=== PATIENT | female | born 1995 | race Caucasian/White ===

== ENCOUNTER 2017-07-10 09:23 | Emergency (ER) | payer MEDICAID ==
[2017-07-10 11:03] LABS: BASOPHILS % (AUTO) 0.5 %; EOSINOPHILS # (AUTO) 0.2 10^3/uL (0.0-0.7); EOSINOPHILS % (AUTO) 2.2 %; HGB - HEMOGLOBIN 12.7 g/dL (12.0-16.0); LYMPHOCYTES # (AUTO) 1.6 10^3/uL (1.5-3.5); LYMPHOCYTES % (AUTO) 22.7 %; MEAN CORPUSCULAR HEMOGLOBIN 28.5 pg (27.0-31.0); MEAN CORPUSCULAR HGB CONC 34.2 g/dL (32.0-36.0); MEAN CORPUSCULAR VOLUME 83.1 fL (81.0-99.0); MEAN PLATELET VOLUME 6.9 fL (7.9-10.8); MONOCYTES # (AUTO) 0.5 10^3/uL (0.0-1.0); MONOCYTES % (AUTO) 6.9 %; NEUTROPHILS # (AUTO) 4.7 10^3/uL (1.5-6.6); NEUTROPHILS % (AUTO) 67.7 %; RED BLOOD COUNT 4.45 10^6/uL (4.20-5.40); RED CELL DISTRIBUTION WIDTH 13.2 % (12.0-15.0); UNCORRECTED WHITE BLOOD COUNT 6.9 x10^3/uL; WHITE BLOOD COUNT 6.9 x10^3/uL (4.8-10.8)
[2017-07-10 11:22] LABS: ALBUMIN/GLOBULIN RATIO 1.1 (1.0-2.2); BILIRUBIN,TOTAL 0.2 mg/dL (0.2-1.0); CREATININE 0.8 mg/dL (0.4-1.0); POTASSIUM 3.8 mmol/L (3.5-5.0); TOTAL PROTEIN 7.2 g/dL (6.7-8.2)
--- NOTE | 2017-07-10 11:28 | ED Physician Documentation ---
History of Present Illness - Stated complaint Stated Complaint: RAPID HEART RATE - Chief complaint Chief Complaint: Cardiac - History obtained from History obtained from: Patient, Family - History of Present Illness Timing: How many weeks ago (8) - Additonal information Additional information: 22-year-old female has noticed over the past 2 months episodically having a rapid heart rate and feeling dizzy and lightheaded. She has not clocked her heart rate with this she did check her blood pressure once and it was normal. She has been having issues at work with lightheadedness and dizziness and has come to the emergency department now for evaluation. She has not been recently ill. She does have some anxiety. Review of Systems Constitutional: denies: Fever Eyes: denies: Decreased vision, Photophobia Ears: denies: Ear pain Nose: denies: Rhinorrhea / runny nose, Congestion Throat: denies: Sore throat Cardiac: reports: Palpitations. denies: Chest pain / pressure Respiratory: denies: Dyspnea, Cough GI: denies: Abdominal Pain, Nausea, Vomiting : denies: Dysuria, Frequency Skin: denies: Rash, Lesions Musculoskeletal: denies: Neck pain, Back pain, Extremity pain Neurologic: denies: Generalized weakness, Focal weakness, Numbness PD PAST MEDICAL HISTORY - Past Medical History Past Medical History: Yes GI: Ulcers - Past Surgical History Past Surgical History: Yes HEENT: Tonsil/Adenoidectomy - Present Medications Home Medications: Ambulatory Orders Medication Instructions Recorded Confirmed No Known Home Medications [No 07/10/17 07/10/17 Known Home Medications] - Allergies Allergies/Adverse Reactions: Allergies Allergy/AdvReac Type Severity Reaction Status Date / Time ondansetron AdvReac Anxiety Verified 07/10/17 09:58 [From Zofran (as hydrochloride)] - Social History Does the pt smoke?: Yes Smoking Status: Current every day smoker Does the pt drink ETOH?: No Does the pt have substance abuse?: No PD ED PE NORMAL - Vitals Vital signs reviewed: Yes (normal ) - General General: Alert and oriented X 3, No acute distress, Well developed/nourished - HEENT HEENT: Atraumatic, PERRL, EOMI, Ears normal, Moist mucous membranes, Pharynx benign, Dentition benign - Neck Neck: Supple, no meningeal sign, No bony TTP - Cardiac Cardiac: RRR, No murmur - Respiratory Respiratory: No respiratory distress, Clear bilaterally - Abdomen Abdomen: Soft, Non tender - Back Back: No CVA TTP, No spinal TTP - Derm Derm: Normal color, Warm and dry, No rash - Extremities Extremities: No deformity, No edema - Neuro Neuro: Alert and oriented X 3, No motor deficit, No sensory deficit, Normal speech Eye Opening: Spontaneous Motor: Obeys Commands Verbal: Oriented GCS Score: 15 - Psych Psych: Normal mood, Normal affect Results - Vitals Vitals: Vital Signs - 24 hr 07/10/17 07/10/17 07/10/17 09:40 10:46 11:35 Temperature 36.7 C Heart Rate 88 75 69 Respiratory 18 16 18 Rate Blood Pressure 119/74 104/72 118/69 O2 Saturation 100 100 100 Oxygen O2 Source Room air - EKG (time done) 0936 Rate: Rate (enter#) (92) Rhythm: NSR Ischemia: Normal ST segments Compare to prior EKG: Old EKG unavailable Computer interpretation: Agree with computer - Labs Labs: Laboratory Tests 07/10/17 07/10/17 07/10/17 10:45 10:45 10:45 WBC 6.9 RBC 4.45 Hgb 12.7 Hct 37.0 MCV 83.1 MCH 28.5 MCHC 34.2 RDW 13.2 Plt Count 222 MPV 6.9 L Neut # 4.7 Lymph # 1.6 Grimes # 0.5 Eos # 0.2 Baso # 0.0 Absolute Nucleated RBC 0.00 Nucleated RBC % 0.0 Sodium 139 Potassium 3.8 Chloride 105 Carbon Dioxide 24 Anion Gap 10.0 BUN 14 Creatinine 0.8 Estimated GFR (MDRD) 91 Glucose 96 Calcium 9.0 Total Bilirubin 0.2 AST 20 ALT 17 Alkaline Phosphatase 69 Troponin I < 0.04 Total Protein 7.2 Albumin 3.8 Globulin 3.4 Albumin/Globulin Ratio 1.1 Lipase 36 Urine Color Urine Clarity Urine pH Ur Specific [place] Urine Protein Urine Glucose (UA) Urine Ketones Urine Occult Blood Urine Nitrite Urine Bilirubin Urine Urobilinogen Ur Leukocyte Esterase Urine RBC Urine WBC Ur Squamous Epith Cells Amorphous Sediment Urine Bacteria Ur Microscopic Review Urine Culture Comments Urine HCG, Qual 07/10/17 11:30 WBC RBC Hgb Hct MCV MCH MCHC RDW Plt Count MPV Neut # Lymph # [place] # Eos # Baso # Absolute Nucleated RBC Nucleated RBC % Sodium Potassium Chloride Carbon Dioxide Anion Gap BUN Creatinine Estimated GFR (MDRD) Glucose Calcium Total Bilirubin AST ALT Alkaline Phosphatase Troponin I Total Protein Albumin Globulin Albumin/Globulin Ratio Lipase Urine Color YELLOW Urine Clarity CLOUDY Urine pH 7.5 Ur Specific [place] 1.015 Urine Protein NEGATIVE Urine Glucose (UA) NEGATIVE Urine Ketones NEGATIVE Urine Occult Blood NEGATIVE Urine Nitrite NEGATIVE Urine Bilirubin NEGATIVE Urine Urobilinogen 0.2 (NORMAL) Ur Leukocyte Esterase NEGATIVE Urine RBC 0-5 Urine WBC 0-3 Ur Squamous Epith Cells NONE SEEN Amorphous Sediment Moderate Urine Bacteria Rare Ur Microscopic Review INDICATED Urine Culture Comments NOT INDICATED Urine HCG, Qual NEGATIVE Procedures - IVC sono (time) 1120 Bedside IVC sono: IVC measures (cm) (1.7), Euvolemia PD MEDICAL DECISION MAKING - ED course Complexity details: reviewed results, re-evaluated patient, considered differential, d/w patient, d/w family ED course: 22-year-old female with a history of symptoms of lightheadedness dizziness and palpitations has a normal examination today she is not dehydrated on interrogation of the inferior vena cava and she does not have arrhythmia or signs of infection. She is not . She has frequent symptoms and I suspect she may have some issue with anxiety. Departure - Departure Disposition: 01 Home, Self Care Clinical Impression: Anxiety Condition: Stable Instructions: ED Stress React, ED Panic Attack Follow-Up: [facility] [Provider Group]
[2017-07-10 11:45] LABS: BILIRUBIN,URINE NEGATIVE (NEGATIVE); PH,URINE 7.5 PH (5.0-7.5)
[2017-07-10 11:49] LABS: HCG UR QUAL NEGATIVE; UA w/ MICROSCOPIC CHARGE YES
[2017-07-10 12:00] LABS: WBC,URINE 0-3 /HPF (0-5)
[2017-07-10 12:01] LABS: UR CULTURE IF IND NOT INDICATED
[2017-07-10 12:11] VITALS: BP 108/62
== END 2017-07-10 12:15 | disposition home or self-care (01) ==
LOC: ED 09:23
DX: F41.9 Anxiety disorder, unspecified (principal); F17.200 Nicotine dependence, unspecified, uncomplicated
CPT/HCPCS: 36415; 80053; 81001; 81003; 81025; 83690; 84484; 85025; 87086; 93005; 99284

== ENCOUNTER 2017-08-23 10:18 | Outpatient (CLI) | payer MEDICAID ==
[2017-08-23 10:58] LABS: BASOPHILS % (AUTO) 0.7 %; EOSINOPHILS # (AUTO) 0.1 10^3/uL (0.0-0.7); EOSINOPHILS % (AUTO) 1.5 %; HGB - HEMOGLOBIN 13.2 g/dL (12.0-16.0); LYMPHOCYTES # (AUTO) 1.5 10^3/uL (1.5-3.5); LYMPHOCYTES % (AUTO) 22.8 %; MEAN CORPUSCULAR HEMOGLOBIN 29.2 pg (27.0-31.0); MEAN CORPUSCULAR HGB CONC 34.6 g/dL (32.0-36.0); MEAN CORPUSCULAR VOLUME 84.4 fL (81.0-99.0); MEAN PLATELET VOLUME 6.8 fL (7.9-10.8); MONOCYTES # (AUTO) 0.5 10^3/uL (0.0-1.0); MONOCYTES % (AUTO) 6.9 %; NEUTROPHILS # (AUTO) 4.5 10^3/uL (1.5-6.6); NEUTROPHILS % (AUTO) 68.1 %; PLT - PLATELET COUNT 226 10^3/uL (130-450); RED BLOOD COUNT 4.53 10^6/uL (4.20-5.40); WHITE BLOOD COUNT 6.6 x10^3/uL (4.8-10.8)
[2017-08-23 11:04] LABS: BILIRUBIN,URINE NEGATIVE (NEGATIVE); GLUCOSE, URINE (UA) NEGATIVE (NEGATIVE); KETONES,URINE (UA) NEGATIVE (NEGATIVE); LEUKOCYTE ESTERASE, URINE NEGATIVE (NEGATIVE); NITRITE,URINE NEGATIVE (NEGATIVE); OCCULT BLOOD,URINE NEGATIVE (NEGATIVE); PROTEIN,URINE NEGATIVE (NEGATIVE); UROBILINOGEN,URINE 0.2 (NORMAL) E.U./dL (NORMAL)
[2017-08-23 11:05] LABS: CLARITY,URINE CLOUDY (CLEAR)
[2017-08-23 11:12] LABS: BACTERIA,URINE Rare /HPF (None Seen); RBC,URINE 0-5 /HPF (0-5); SQUAMOUS EPITHELIAL CELL,UR FEW Squamous (<= Few)
[2017-08-23 11:13] LABS: AMORPHOUS SEDIMENT,UR Moderate /LPF
[2017-08-24 12:31] LABS: HIV AG/AB 4TH GEN NON-REACTIVE (NON-REACTIVE)
[2017-08-24 13:33] LABS: HEPATITIS B SURFACE ANTIGEN NON-REACTIVE (NON-REACTIVE)
== END 2017-08-23 10:19 | disposition home or self-care (01) ==
LOC: LAB 10:18
PROVIDERS: ATTEND Registered Nurse
DX: Z36.9 Encounter for antenatal screening, unspecified (principal)
CPT/HCPCS: 36415; 81001; 81599; 85025; 86592; 86762; 86850; 86900; 86901; 87340; 87389

== ENCOUNTER 2017-09-08 11:31 | Emergency (ER) | payer MEDICAID, OTHER ==
[2017-09-08 11:58] LABS: BILIRUBIN,URINE NEGATIVE (NEGATIVE); GLUCOSE, URINE (UA) NEGATIVE (NEGATIVE); KETONES,URINE (UA) NEGATIVE (NEGATIVE); LEUKOCYTE ESTERASE, URINE NEGATIVE (NEGATIVE); NITRITE,URINE NEGATIVE (NEGATIVE); OCCULT BLOOD,URINE TRACE-INTA (NEGATIVE); PROTEIN,URINE NEGATIVE (NEGATIVE); UROBILINOGEN,URINE 0.2 (NORMAL) E.U./dL (NORMAL)
[2017-09-08 11:59] LABS: CLARITY,URINE CLOUDY (CLEAR)
--- NOTE | 2017-09-08 12:05 | ED Physician Documentation ---
PD HPI FEMALE - Stated complaint Stated Complaint: CRAMPING/BLEEDING 9WKS PREG - Chief complaint Chief Complaint: Abd Pain - History obtained from History obtained from: Patient - History of Present Illness Timing - onset: Today Timing - duration: Minutes Timing - details: Abrupt onset Associated symptoms: Pelvic pain, Vaginal bleeding (she had onset of some pelvic cramping and had some clear vaginal fluid then some trace of bloody fluid. Still with some cramping.). 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 - Past Surgical History Past Surgical History: Yes HEENT: Tonsil/Adenoidectomy - Present Medications Home Medications: Ambulatory Orders Medication Instructions Recorded Confirmed Cetirizine [ZyrTEC] 10 mg PO DAILY #15 tablet 09/08/17 Dexamethasone [Decadron] 4 mg PO DAILY #5 tablet 09/08/17 Docusate Sodium 100 mg PO DAILY #30 capsule 09/08/17 Pyridoxine HCl [Vitamin B-6] 25 mg PO BID #60 tablet 09/08/17 - Allergies Allergies/Adverse Reactions: Allergies Allergy/AdvReac Type Severity Reaction Status Date / Time ondansetron AdvReac Anxiety Verified 07/10/17 09:58 [From Zofran (as hydrochloride)] - Social History Does the pt smoke?: Yes Smoking Status: Current every day smoker Does the pt drink ETOH?: No Does the pt have substance abuse?: No PD ED PE NORMAL - Vitals Vital signs reviewed: Yes - General General: Alert and oriented X 3, No acute distress, Well developed/nourished - Neck Neck: Supple, no meningeal sign, No adenopathy - Cardiac Cardiac: RRR, No murmur - Respiratory Respiratory: Clear bilaterally - Abdomen Abdomen: Normal bowel sounds, Soft, Non tender, Non distended - Female Female : Deferred, Other (bedside U/S shows IUP with size c/w dates, good movement, FHR 140, and normal appearing amniotic fluid. No pelvic free fluid. ) - Rectal Rectal: Deferred - Back Back: No CVA TTP - Derm Derm: Normal color, Warm and dry - Neuro Neuro: Alert and oriented X 3, No motor deficit, Normal speech Results - Vitals Vitals: Vital Signs - 24 hr 09/08/17 09/08/17 09/08/17 11:34 13:05 13:07 Temperature 36.9 C 36.8 C 36.4 C L Heart Rate 77 74 84 Respiratory 17 17 18 Rate Blood Pressure 126/76 130/74 106/64 O2 Saturation 100 100 100 Oxygen O2 Source Room air - Labs Labs: Laboratory Tests 09/08/17 11:40 Urine Color LIGHT YELLOW Urine Clarity CLOUDY Urine pH 8.0 H Ur Specific [place] 1.015 Urine Protein NEGATIVE Urine Glucose (UA) NEGATIVE Urine Ketones NEGATIVE Urine Occult Blood TRACE-INTA Urine Nitrite NEGATIVE Urine Bilirubin NEGATIVE Urine Urobilinogen 0.2 (NORMAL) Ur Leukocyte Esterase NEGATIVE Urine RBC 0-5 Urine WBC 0-3 Ur Squamous Epith Cells RARE Squamous Amorphous Sediment Marked Urine Bacteria Rare Ur Microscopic Review INDICATED Urine Culture Comments NOT INDICATED PD MEDICAL DECISION MAKING - ED course Complexity details: considered differential, d/w patient Departure - Departure Disposition: 01 Home, Self Care Clinical Impression: Vaginal bleeding affecting early , Pelvic cramping, Itching Qualifiers: Weeks of gestation: 9 weeks Qualified Code(s): Z3A.09 - 9 weeks gestation of Condition: Stable Record reviewed to determine appropriate education?: Yes Instructions: Bleeding Early Preg, ED Allergic Reaction General Other Prescriptions: Cetirizine [ZyrTEC] 10 mg PO DAILY #15 tablet Dexamethasone [Decadron] 4 mg PO DAILY #5 tablet Docusate Sodium 100 mg PO DAILY #30 capsule Pyridoxine HCl [Vitamin B-6] 25 mg PO BID #60 tablet Comments: Your appears normal at this time by ultrasound. Drink lots of fluids. He can use Tylenol every 6 hours if needed for cramping or pain. Recheck if worsening bleeding, pain, fevers, other concerns. Follow-up with your HOME OFFICE REPRESENTATIVE if symptoms persist another day or 2. For the itching that you have had, he can use Benadryl every 6 hours if needed short-term for itchiness. This can also improve nausea. Otherwise use a long-acting antihistamine such as Zyrtec daily for the next week or 2. Presuming an allergy response, also use Decadron steroid daily for 5 days. Follow-up if the itchiness persists. If it does might need to consider allergy to medication, such as your vitamin. For constipation, try docusate 100 mg daily. Discharge Date/Time: 09/08/17 13:13
[2017-09-08 12:12] LABS: RBC,URINE 0-5 /HPF (0-5); SQUAMOUS EPITHELIAL CELL,UR RARE Squamous (<= Few)
[2017-09-08 12:13] LABS: AMORPHOUS SEDIMENT,UR Marked /LPF; BACTERIA,URINE Rare /HPF (None Seen)
[2017-09-08] MEDS ORDERED: DEXAMETHASONE 10 MG/ML VIAL PO STA (12:38)
[2017-09-08] MEDS ORDERED: CETIRIZINE 10 MG TABLET PO STA (12:38)
[2017-09-08] MEDS ORDERED: ACETAMINOPHEN 325 MG TABLET PO STA (12:38)
[2017-09-08] MEDS ORDERED: diphenhydrAMINE 25 MG CAPSULE PO STA (12:39)
[2017-09-08 13:08] VITALS: BP 106/64
== END 2017-09-08 13:13 | disposition home or self-care (01) ==
LOC: ED 11:31
DX: O20.9 Hemorrhage in early pregnancy, unspecified (principal); Z3A.09 9 weeks gestation of pregnancy; R10.2 Pelvic and perineal pain; L29.9 Pruritus, unspecified; O99.331 Smoking (tobacco) complicating pregnancy, first trimester
CPT/HCPCS: 81001; 99283; A9270; 81003; 87086

== ENCOUNTER 2017-10-11 09:57 | Emergency (ER) | payer OTHER ==
[2017-10-11 10:02] VITALS: BP 112/74
[2017-10-11] MEDS ORDERED: ACETAMINOPHEN 325 MG TABLET PO STA (10:16)
--- NOTE | 2017-10-11 10:19 | ED Physician Documentation ---
PD HPI NECK PAIN - Stated complaint Stated Complaint: NECK PX/14WKS PREG - Chief complaint Chief Complaint: General - History obtained from History obtained from: Patient - History of Present Illness Timing - onset: How many days ago (2) Timing - details: Still present Location: Lower, Left Quality: Spasm Associated symptoms: No: Fever, Weakness, Numbness Worsened by: Movement Contributing factors: No: Trauma Similar symptoms before: No diagnosis - Additional information Additional information: The patient is a 22-year-old female, currently at 14 weeks gestation, who presents with soreness on the left side of her neck. Her symptoms started 2 days ago and persist today. She denies any traumatic injury. The pain is exacerbated by movement of her head. She is left-hand dominant. She reports having tingling in her left arm for about 5 hours yesterday. She denies any numbness, weakness, or tingling today. She has a history of similar episode at age 16, lasting for about 2 days before resolving spontaneously. Review of Systems Constitutional: denies: Fever Nose: denies: Congestion Throat: denies: Sore throat Cardiac: denies: Chest pain / pressure Respiratory: denies: Dyspnea, Cough GI: denies: Abdominal Pain, Nausea, Vomiting : reports: Now EGA (14 weeks gestation). denies: Dysuria Skin: denies: Rash Musculoskeletal: reports: Neck pain. 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 - Past Surgical History Past Surgical History: Yes HEENT: Tonsil/Adenoidectomy - Present Medications Home Medications: Ambulatory Orders Medication Instructions Recorded Confirmed Pnv No.121/Iron/Folic Acid 1 tab PO DAILY 10/11/17 10/11/17 [ Multivitamin Tablet] - Allergies Allergies/Adverse Reactions: Allergies Allergy/AdvReac Type Severity Reaction Status Date / Time ondansetron AdvReac Anxiety Verified 10/11/17 10:02 [From Zofran (as hydrochloride)] - Social History Does the pt smoke?: No Smoking Status: Never smoker Does the pt drink ETOH?: No Does the pt have substance abuse?: No - Immunizations Immunizations are current?: Yes PD ED PE NORMAL - Vitals Vital signs reviewed: Yes (normal) - General General: Alert and oriented X 3, Well developed/nourished - HEENT HEENT: Atraumatic, EOMI, Pharynx benign - Neck Neck: Supple, no meningeal sign, No bony TTP, No adenopathy, No JVD, Other ( There is tenderness to palpation along the left paracervical musculature, including the trapezius musculature. She is able to turn her head at least 30 in each direction. There is no nuchal rigidity.) - Cardiac Cardiac: RRR, No murmur - Respiratory Respiratory: No respiratory distress, Clear bilaterally - Abdomen Abdomen: Soft, Non tender, Other (Gravid uterus, consistent with dates.) - Back Back: No spinal TTP - Derm Derm: No rash - Extremities Extremities: No edema, No calf tenderness / cord - Neuro Neuro: Alert and oriented X 3, No motor deficit, No sensory deficit, Normal speech Results - Vitals Vitals: Vital Signs - 24 hr 10/11/17 09:59 Temperature 36.5 C Heart Rate 96 Respiratory 16 Rate Blood Pressure 112/74 O2 Saturation 100 Oxygen O2 Source Room air PD MEDICAL DECISION MAKING - ED course Complexity details: considered differential, d/w patient, d/w family ED course: The patient's presentation is most consistent with cervical muscle spasm. Her presentation does not suggest meningitis, or acute spinous injury. Treatment in the emergency department included administration of Tylenol 650 mg orally. I discussed with her and her that x-rays are not clinically indicated, and they agreed. I discussed with them symptomatic treatment, outpatient follow -up, as well as potentially worrisome signs or symptoms that should prompt reevaluation in the emergency department. Departure - Departure Disposition: 01 Home, Self Care Clinical Impression: Cervical myofascial strain Qualifiers: Encounter type: initial encounter Qualified Code(s): S16.1XXA - Strain of muscle, fascia and tendon at neck level, initial encounter Qualifiers: Weeks of gestation: 14 weeks Qualified Code(s): Z3A.14 - 14 weeks gestation of Condition: Stable Instructions: ED Sprain Strain Neck Follow-Up: TROY KINSEY MD [Physician No Access] - Comments: Use Tylenol, up to 650 mg 3 or 4 times daily, if needed for pain. Do neck stretching exercises as demonstrated in the emergency department. Follow up with your primary physician as planned. Return to the emergency department if you develop increasing pain, fever, numbness or weakness, or otherwise worsening symptoms.
== END 2017-10-11 10:36 | disposition home or self-care (01) ==
LOC: ED 09:57
DX: O9A.212 Injury, poisoning and certain other consequences of external causes complicating pregnancy, second trimester (principal); S16.1XXA Strain of muscle, fascia and tendon at neck level, initial encounter; X58.XXXA Exposure to other specified factors, initial encounter; Z3A.14 14 weeks gestation of pregnancy
CPT/HCPCS: 99283; A9270

== ENCOUNTER 2017-10-22 15:48 | Emergency (ER) | payer OTHER ==
[2017-10-22 15:55] VITALS: BP 112/77
--- NOTE | 2017-10-22 16:22 | ED Physician Documentation ---
PD HPI PED ILLNESS - Stated complaint Stated Complaint: COUGH/THROAT PX/TOMLINSON/16 WEEKS - Chief complaint Chief Complaint: Heent - History obtained from History obtained from: Patient, Family - History of Present Illness Timing - onset: Other ( at 16 weeks gestation with 1 week's worth of cough and cold symptoms. It started off mostly with sinus pressure and congestion. It was getting better but returned over the last 24 hours with severe right sinus pain and headache. Also a productive cough but no shortness of breath or fevers.) Review of Systems Constitutional: reports: Fatigue. denies: Fever, Chills Nose: reports: Rhinorrhea / runny nose, Congestion, Sinus pressure / pain Throat: reports: Sore throat Respiratory: reports: Cough. 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 - Past Surgical History Past Surgical History: Yes HEENT: Tonsil/Adenoidectomy - Present Medications Home Medications: Ambulatory Orders Medication Instructions Recorded Confirmed Pnv No.121/Iron/Folic Acid 1 tab PO DAILY 10/11/17 10/22/17 [ Multivitamin Tablet] Amox/Clav 875/125 [Augmentin] 1 each PO Q12H #20 tablet 10/22/17 Mometasone Furoate [Nasonex] 1 spray NS BID #1 spray.pump 10/22/17 - Allergies Allergies/Adverse Reactions: Allergies Allergy/AdvReac Type Severity Reaction Status Date / Time ondansetron AdvReac Anxiety Verified 10/22/17 16:17 [From Zofran (as hydrochloride)] - Social History Does the pt smoke?: No Smoking Status: Never smoker Does the pt drink ETOH?: No Does the pt have substance abuse?: No - Immunizations Immunizations are current?: Yes - POLST Patient has POLST: No PD ED PE NORMAL - Vitals Vital signs reviewed: Yes - General General: Alert and oriented X 3, No acute distress - HEENT HEENT: PERRL, EOMI, Ears normal, Pharynx benign, Other (Tender especially over the right maxillary sinus) - Neck Neck: Supple, no meningeal sign, No bony TTP - Cardiac Cardiac: RRR, No murmur - Respiratory Respiratory: No respiratory distress, Clear bilaterally - Abdomen Abdomen: Non tender - Neuro Neuro: Alert and oriented X 3, Normal speech - Psych Psych: Normal mood, Normal affect Results - Vitals Vitals: Vital Signs - 24 hr 10/22/17 15:53 Temperature 36.5 C Heart Rate 101 H Respiratory 16 Rate Blood Pressure 112/77 O2 Saturation 100 Oxygen O2 Source Room air Departure - Departure Disposition: 01 Home, Self Care Clinical Impression: Qualifiers: Weeks of gestation: 16 weeks Qualified Code(s): Z3A.16 - 16 weeks gestation of Sinusitis Qualifiers: Sinusitis location: maxillary Chronicity: acute Recurrence: non-recurrent Qualified Code(s): J01.00 - Acute maxillary sinusitis, unspecified Condition: Good Record reviewed to determine appropriate education?: Yes Instructions: ED Sinusitis Abx Tx Prescriptions: Amox/Clav 875/125 [Augmentin] 1 each PO Q12H #20 tablet Mometasone Furoate [Nasonex] 1 spray NS BID #1 spray.pump Comments: Call your doctor to arrange a follow-up appointment, make the next available appointment. In the interim, return anytime if worse or if new symptoms develop.
== END 2017-10-22 16:25 | disposition home or self-care (01) ==
LOC: ED 15:48
DX: O99.512 Diseases of the respiratory system complicating pregnancy, second trimester (principal); J01.00 Acute maxillary sinusitis, unspecified; Z3A.16 16 weeks gestation of pregnancy
CPT/HCPCS: 99283

== ENCOUNTER 2017-12-31 10:07 | Outpatient (CLI) | payer OTHER, MEDICAID ==
[2017-12-31 11:52] LABS: HGB - HEMOGLOBIN 12.1 g/dL (12.0-16.0); MEAN CORPUSCULAR HEMOGLOBIN 29.7 pg (27.0-31.0); MEAN CORPUSCULAR HGB CONC 34.2 g/dL (32.0-36.0); MEAN CORPUSCULAR VOLUME 86.8 fL (81.0-99.0); MEAN PLATELET VOLUME 6.4 fL (7.9-10.8); RED BLOOD COUNT 4.08 10^6/uL (4.20-5.40); RED CELL DISTRIBUTION WIDTH 13.5 % (12.0-15.0); WHITE BLOOD COUNT 10.6 x10^3/uL (4.8-10.8)
== END 2017-12-31 10:08 | disposition home or self-care (01) ==
LOC: LAB 10:07
PROVIDERS: ATTEND Registered Nurse
DX: Z34.82 Encounter for supervision of other normal pregnancy, second trimester (principal)
CPT/HCPCS: 36415; 82950; 86850

== ENCOUNTER 2018-02-25 13:22 | Outpatient (CLI) | payer OTHER, MEDICAID | END 2018-02-25 13:23 | disposition home or self-care (01) | LOC: LAB.R 13:22 | PROVIDERS: ATTEND Nurse Practitioner Obstetrics & Gynecology | DX: R82.99 Other abnormal findings in urine (principal); O47.03 False labor before 37 completed weeks of gestation, third trimester | CPT/HCPCS: 82731; 87086 ==

== ENCOUNTER 2018-02-25 16:16 | Outpatient (CLI) | payer OTHER, MEDICAID ==
[2018-02-25 16:41] LABS: BILIRUBIN,URINE NEGATIVE (NEGATIVE); GLUCOSE, URINE (UA) NEGATIVE (NEGATIVE); KETONES,URINE (UA) TRACE mg/dL (NEGATIVE); LEUKOCYTE ESTERASE, URINE NEGATIVE (NEGATIVE); NITRITE,URINE NEGATIVE (NEGATIVE); OCCULT BLOOD,URINE NEGATIVE (NEGATIVE); PH,URINE 6.5 PH (5.0-7.5); PROTEIN,URINE NEGATIVE (NEGATIVE); UROBILINOGEN,URINE 0.2 (NORMAL) E.U./dL (NORMAL)
[2018-02-25 16:44] LABS: CLARITY,URINE CLEAR (CLEAR)
[2018-02-25] MEDS ORDERED: LACTATED RINGERS 1,000 ML IV SCH (17:00)
[2018-02-25] MEDS ORDERED: SODIUM CHLORIDE FLUSH 0.9% 10 ML SYRINGE ONE (17:06)
[2018-02-25 19:03] VITALS: BP 102/69
== END 2018-02-25 19:17 | disposition home or self-care (01) ==
LOC: WFO 16:16 → FBP 16:19 → WFO 19:17
PROVIDERS: ATTEND Registered Nurse
DX: O23.13 Infections of bladder in pregnancy, third trimester (principal); Z3A.33 33 weeks gestation of pregnancy; O47.03 False labor before 37 completed weeks of gestation, third trimester
CPT/HCPCS: 59025; 81003; 99213; J7120; 81001; 82731; 87086

== ENCOUNTER 2018-03-08 17:30 | Outpatient (CLI) | payer OTHER, MEDICAID ==
[2018-03-08 17:42] VITALS: BP 107/70
[2018-03-08 18:30] LABS: RUPTURE OF MEMBRANES PLUS NEGATIVE (NEGATIVE)
== END 2018-03-08 18:40 | disposition home or self-care (01) ==
LOC: WFO 17:30 → FBP 17:34 → WFO 18:40
PROVIDERS: ATTEND Nurse Practitioner Obstetrics & Gynecology
DX: O99.89 Other specified diseases and conditions complicating pregnancy, childbirth and the puerperium (principal); N89.8 Other specified noninflammatory disorders of vagina; Z3A.35 35 weeks gestation of pregnancy
CPT/HCPCS: 84112; 99213

== ENCOUNTER 2018-03-13 16:21 | Outpatient (CLI) | payer OTHER, MEDICAID | END 2018-03-13 16:22 | disposition home or self-care (01) | LOC: LAB.R 16:21 | PROVIDERS: ATTEND Registered Nurse | DX: Z34.83 Encounter for supervision of other normal pregnancy, third trimester (principal) | CPT/HCPCS: 87081 ==

== ENCOUNTER 2018-03-31 07:55 | Outpatient (CLI) | payer OTHER, MEDICAID ==
[2018-03-31 08:21] VITALS: BP 104/66
[2018-03-31 08:38] LABS: RUPTURE OF MEMBRANES PLUS NEGATIVE (NEGATIVE)
== END 2018-03-31 08:55 | disposition home or self-care (01) ==
LOC: WFO 07:55 → FBP 07:56 → WFO 08:55
PROVIDERS: ATTEND Nurse Practitioner Obstetrics & Gynecology
DX: O99.89 Other specified diseases and conditions complicating pregnancy, childbirth and the puerperium (principal); N89.8 Other specified noninflammatory disorders of vagina; Z3A.38 38 weeks gestation of pregnancy
CPT/HCPCS: 59025; 84112; 99213

== ENCOUNTER 2018-04-06 07:59 | Inpatient (IN) | payer OTHER, MEDICAID ==
[2018-04-06] MEDS ORDERED: SODIUM CHLORIDE FLUSH 0.9% 10 ML SYRINGE ONE ×2 (08:07→15:38)
[2018-04-06] MEDS ORDERED: LACTATED RINGERS 1,000 ML IV ONE (08:25)
[2018-04-06] MEDS: SODIUM CHLORIDE FLUSH 0.9% 10 ML SYRINGE IVP PRN ×4 (09:00→20:00)
[2018-04-06] MEDS ORDERED: PENICILLIN G POTASSIUM 5,000,000 UNIT in SODIUM CHLORIDE 0.9% MINIBAG 100 ML IV ONE (09:41)
[2018-04-06] MEDS ORDERED: fentaNYL 100 MCG/2 ML VIAL IVP PRN (09:41)
[2018-04-06] MEDS ORDERED: LACTATED RINGERS 500 ML IV ONE ×2 (09:43→20:55)
[2018-04-06] MEDS ORDERED: METOCLOPRAMIDE 10 MG/2 ML VIAL IVP PRN (09:44)
--- NOTE | 2018-04-06 09:56 | PROVIDER PROGRESS NOTE ---
Subjective - Subjective Subjective: S: Sandra and Francisco present today for 39.1wk logistic induction of labor. Pt reports +FM. Denies VB or Lof. Reports that she has continued to lose her mucus plug. Feels slightly anxious but overall excited to get the process of induction started. and father supportive at the bedside. O: Pt light headed and dizzy shortly after presenting - BP 98/73 and 77/56. HR 136 and 135. Fluid bolus administered and pt turned to left side. Repeat BP 106/ 80 and HR 104 and pt reports significant improvement in symptoms. Upon arrival SVE 3/75/-1, anterior, medium consistency, vertex. No contractions via tocometry. FHR baseline 145, moderate variability, + accels, no decels. Heart RRR w/o M/G/R, lungs CTAB, abdomen gravid, soft, nontender. EFW 3100g. Bilateral LE's trace edema. A: 22yo @ 39.1wks gestation GBS positive Logistic IOL preceded by cervical ripening with Misoprostol 50mcg BC q 4 hours FHR Category I P: Cervical ripening in anticipation for IOL with misoprostol 50mcg BC q 4 hours. Penicillin initiated for GBS prophylaxis -continue per protocol. Continuous monitoring. Repeat SVE in 8 hours or sooner PRN. Likely AROM and initiation of Pitocin for IOL in 8 hours. Nitrous oxide per maternal request PRN discomfort. Epidural per maternal request. Reviewed plan of care with patient and her who are in agreement. Consent form previously signed. Pt and both verbalized understanding and agree to above plan. They deny further questions or concerns at this time.
[2018-04-06 09:59] LABS: BASOPHILS # (AUTO) 0.1 10^3/uL (0.0-0.1); BASOPHILS % (AUTO) 0.6 %; EOSINOPHILS # (AUTO) 0.1 10^3/uL (0.0-0.7); EOSINOPHILS % (AUTO) 0.9 %; HGB - HEMOGLOBIN 11.2 g/dL (12.0-16.0); LYMPHOCYTES # (AUTO) 1.5 10^3/uL (1.5-3.5); LYMPHOCYTES % (AUTO) 15.2 %; MEAN CORPUSCULAR HEMOGLOBIN 28.5 pg (27.0-31.0); MEAN CORPUSCULAR HGB CONC 35.1 g/dL (32.0-36.0); MEAN CORPUSCULAR VOLUME 81.2 fL (81.0-99.0); MEAN PLATELET VOLUME 7.2 fL (7.9-10.8); MONOCYTES # (AUTO) 0.8 10^3/uL (0.0-1.0); MONOCYTES % (AUTO) 8.1 %; NEUTROPHILS # (AUTO) 7.5 10^3/uL (1.5-6.6); NEUTROPHILS % (AUTO) 75.2 %; PLT - PLATELET COUNT 221 10^3/uL (130-450); RED BLOOD COUNT 3.94 10^6/uL (4.20-5.40); RED CELL DISTRIBUTION WIDTH 13.4 % (12.0-15.0)
[2018-04-06] MEDS: miSOPROStol 100 MCG TABLET BC SCH ×3 (10:18→17:03)
[2018-04-06] MEDS ORDERED: METHYLERGONOVINE 0.2 MG/ML AMP IVP ONE (13:59)
[2018-04-06] MEDS: PENICILLIN G POTASSIUM 2,500,000 UNIT in SODIUM CHLORIDE 0.9% 100ML 100 ML IV SCH ×2 (14:58→20:02)
[2018-04-06] MEDS ORDERED: SODIUM CHLORIDE FLUSH 0.9% 10 ML SYRINGE IVP SCH (17:00)
[2018-04-06] MEDS: LACTATED RINGERS 1,000 ML IV SCH ×4 (17:02→21:47)
--- NOTE | 2018-04-06 19:58 | PROVIDER PROGRESS NOTE ---
Labor Progress Note - Uterine Monitoring Uterine Monitoring Mode: positive: External toco Contraction Frequency (min/apart): 5-8 Contraction Intensity: positive: Moderate Uterine Resting Tone: positive: Soft - Monitoring Monitor Mode: positive: External ultrasound Heart Rate Baseline: 150 Heart Rate Variability: positive: Moderate (6-25 bmp) Accelerations: positive: Present, 15x15 Decelerations: positive: None Strip Review: positive: Category I - Vaginal Exam Dilation (in cm): 3 Effacement (%): 90 Station: -1 Cervical Position: Midposition - Labor Progress Note Labor Progress Note/Additional Text: S: Pt comfortable in bed. Feeling some increased menstrual-like cramping with contractions. Coping well. Enjoyed the [employer]. Dad and supportive at the bedside. O: BP WNL, FHR baseline 150s, moderate variability, + accels, no decels. Contractions palpate moderate every 5-8 minutes with soft resting tone SVE 3/90/-1, vertex, medium consistency, midposition AROM small amount of clear fluid A: 22yo @ 39.1wks gestation GBS positive s/p 2 doses of penicillin Logistic IOL - s/p Misoprostol 50mcg q 4 hours BC x 2 doses FHR baseline Category I P: Continuous monitoring Initiation of pitocin per protocol Epidural per maternal request Continue administration of antibiotics for GBS prophylaxis Anticipate spontaneous vaginal delivery
[2018-04-06] MEDS ORDERED: OXYTOCIN/SODIUM CHLORIDE 500 ML IV SCH (20:00)
[2018-04-06] MEDS ORDERED: fent/BUPIV 2 MCG/0.125% 250 ML EP PRN (20:55)
[2018-04-06] MEDS ORDERED: NALBUPHINE 10 MG/ML AMP IVP PRN (20:55)
[2018-04-06] MEDS ORDERED: NALOXONE 0.4 MG/ML VIAL IVP PRN (20:55)
[2018-04-06] MEDS ORDERED: ePHEDrine 50 MG/ML VIAL IVP PRN (20:55)
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
[2018-04-06] MEDS ORDERED: BUPIVACAINE 0.25% PF 10 ML VIAL ONE (21:02)
--- NOTE | 2018-04-07 00:28 | PROVIDER PROGRESS NOTE ---
Labor Progress Note - Uterine Monitoring Uterine Monitoring Mode: positive: External toco Contraction Frequency (min/apart): 4-5 Contraction Intensity: positive: Moderate Uterine Resting Tone: positive: Soft - Monitoring Monitor Mode: positive: External ultrasound Heart Rate Baseline: 140 Heart Rate Variability: positive: Moderate (6-25 bmp) Accelerations: positive: Present, 15x15 Decelerations: positive: None Strip Review: positive: Category I - Labor Progress Note Labor Progress Note/Additional Text: S: Patient sleeping comfortably in bed. and father supportive and sleeping at the bedside. O: BP 111/61, HR 83, RR 16 Contractions palpate moderate every 4-5 minutes lasting 30-60 seconds with soft resting tone. FHR baseline 140, moderate variability, + accels, no decels. SVE deferred A: 22yo @ 39.1 wks gestation by L=6.3wk U/S GBS positive AROM x5 hours Epidural for effective pain management FHR Category I P: Continuous monitoring Titration of pitocin per protocol Reevaluate in 4 hours or sooner PRN. Anticipate spontaneous vaginal delivery.
[2018-04-07] MEDS: PENICILLIN G POTASSIUM 2,500,000 UNIT in SODIUM CHLORIDE 0.9% 100ML 100 ML IV SCH ×3 (01:02→17:47)
[2018-04-07] MEDS: LACTATED RINGERS 1,000 ML IV SCH (01:05)
[2018-04-07] MEDS ORDERED: fentaNYL 100 MCG/2 ML VIAL ONE ×3 (02:40→08:37)
[2018-04-07] MEDS ORDERED: BUPIVACAINE 0.25% PF 10 ML VIAL ONE (02:41)
[2018-04-07] MEDS ORDERED: LIDOCAINE-PF 2% 10 ML AMP SUBQ ONE (02:44)
[2018-04-07] MEDS ORDERED: ROPIVACAINE 0.2% PF 20 ML AMPULE ONE (08:38)
[2018-04-07] MEDS ORDERED: WITCH HAZEL/GLYCERIN 1 EACH MED..PAD TOP PRN (08:57)
[2018-04-07] MEDS ORDERED: HYDROCORTISONE/PRAMOXINE 10 GM PR PRN (08:57)
[2018-04-07] MEDS ORDERED: OXYTOCIN/SODIUM CHLORIDE 250 ML IV ONE ×2 (08:57→10:55)
[2018-04-07] MEDS ORDERED: SODIUM CHLORIDE 0.9% 1,000 ML IV ONE (09:16)
--- NOTE | 2018-04-07 09:18 | DELIVERY NOTE ---
Delivery Note - Labor Labor: positive: Augmented by ARM, Induced by oxytocin - Delivery Method Infant Delivery Method: positive: Spontaneous vaginal delivery - Presentation Presentation: positive: Vertex, ABDULLAHI - left occiput anterior - Nuchal Cord Nuchal Cord: positive: None - Amniotic Fluid Description Amniotic Fluid Description: positive: Light meconium - Episiotomy Type Episiotomy Type: positive: None - Laceration Laceration: positive: 2nd degree - Delivery Outcome Delivery Outcome: positive: Livebirth - : positive: Placed in direct skin contact with mother, Stimulated, Warmed , Sharon used, Warmer used [place] sex: positive: Male - Cord Cord: positive: 3 vessels - Placenta Placenta: positive: Retained, Partial - Estimated Blood Loss Estimated Blood Loss (in cc): 350 - Post Delivery Events Post Delivery Events: positive: Retained placenta, Shoulder dystocia - Delivery Comments (Free Text/Narrative) Delivery Comments (Free Text/Narrative): Labor: This 22yo @ 39.3wks gestation by L=6.3wk U/S presented on 2017 @ 0800 for logistic IOL. Cervix was 2-3/75/+1, vertex. FHR pattern demonstrated a baseline 140 in a Category I pattern. Misoprostol 50mcg BC q 4 hrs x 2 doses. Penicillin x 5 doses administered for GBS prophylaxis. Epidural per maternal request. AROM a moderate amount of light meconium stained fluid. Pitocin administered for IOL and titrated per protocol for a max dose of 5. The patient progresses to c/c/+2 with significant vaginal pressure at 0630. : head present on perineum with significant caput present at 0750. Spontaneous vaginal delivery of head at 0807. No nuchal cord. Shoulder dystocia noted. McRobert's maneuver unsuccessful. Attempt to collapse anterior should unsuccessful. Posterior arm swept followed immediately by spontaneous reduction of anterior shoulder. Time of 0808 for a total time of dystocia 90 seconds. Viable male infant named Robert delivered with 's 8 and 9 at 1 and 5 min respectively at 0808 on 04/07/18. The was stimulated, dried, and placed skin to skin. The umbilical cord was doubly clamped and cut by FOB. Cord blood was obtained. Pitocin administered via IV for hemostasis. Placenta partially expelled in multiple fragments. Membranes grasped with ring forceps and continued attempt to manually remove placenta unsuccessful. Dr. Casas, documentation consultant physician called to the bedside for evaluation of retained placenta. 3VC. EBL 350mL. The perineum and vagina were inspected and found to have a 2nd degree laceration which was relatively hemostatic. This was immediately left unrepaired at the request of Dr. Casas in anticipation for surgical removal of retained placenta via D&C. Patient consented for surgical removal of retained placenta by Dr. Casas. Immediate plan of care to be resumed by Dr. Casas. Will follow up with patient following procedure. Dad left holding baby skin to skin in stable condition.
[2018-04-07] MEDS ORDERED: LACTATED RINGERS 1,000 ML IV ONE (09:30)
[2018-04-07] MEDS ORDERED: LIDOCAINE-MPF 2% 5 ML VIAL IM ONE (09:40)
[2018-04-07] MEDS ORDERED: OXYTOCIN 10 UNIT/ML VIAL IV ONE (09:40)
[2018-04-07] MEDS ORDERED: fentaNYL 100 MCG/2 ML VIAL IVP ONE (09:40)
[2018-04-07] MEDS ORDERED: METHYLERGONOVINE 0.2 MG/ML AMP IVP ONE (09:40)
[2018-04-07] MEDS ORDERED: HYDROCORTISONE 1% CREAM 28 GM TUBE PR PRN (10:55)
[2018-04-07] MEDS ORDERED: diphenhydrAMINE 25 MG CAPSULE PO PRN (10:55)
[2018-04-07] MEDS ORDERED: LACTATED RINGERS 1,000 ML IV SCH (11:00)
--- NOTE | 2018-04-07 11:21 | OPERATIVE REPORT ---
DATE OF SERVICE: 04/07/2018 Physician: Emeka Casas MD PREOPERATIVE DIAGNOSES 1. Retained placenta. 2. Second-degree laceration. POSTOPERATIVE DIAGNOSES 1. Retained placenta. 2. Second-degree laceration. PROCEDURES 1. Manual exploration of the uterus with removal of placental tissue. 2. Curettage. 3. Repair of second-degree laceration. SURGEON: Emeka Casas MD. ANESTHESIA: Via LMA with Fransisco Toure TOE SEWER, epidural with fentanyl augmentation. FINDINGS: Large fragment of placental tissue noted. The endometrial cavity was contracted well, with no further tissue on curettage. She had a repair of a second-degree laceration. COMPLICATIONS: None. ESTIMATED BLOOD LOSS: 1000 mL. Total, patient had 700 mL blood loss in the operating room, and 350 mL in labor and delivery. SPECIMEN TO PATHOLOGY: Placental fragment. DESCRIPTION OF PROCEDURE: Following adequate epidural anesthesia, the patient was placed in dorsal lithotomy [facility] At this point, she was prepped and draped in the usual fashion. A timeout was performed. Following this, the bladder was drained of urine. A retractor was placed in the vagina, and the placental tissue was noted, being grasped by a ring forceps. Then, utilizing two ring forceps, this was teased out, as well as utilizing a manual removal intravaginal. The entire piece of placental tissue was removed. The uterine cavity was explored manually and then sharply curetted with a banjo curette. No further tissue was removed at this time, and bleeding responded well to Methergine as well as Pitocin. At this point, her episiotomy was repaired with 3-0 Vicryl with a running locking suture of the vaginal mucosa, rebuilding of the perineum with figure-of- eights of 3-0 Vicryl, and the perineum itself being closed with a 3-0 Vicryl. The vagina was inspected. No further bleeding was noted, and the procedure was terminated. Sponge and needle counts were correct. TD: 04/07/2018 11:09 SWAPNA
[2018-04-07] MEDS: DOCUSATE SODIUM 100 MG CAPSULE PO SCH ×2 (11:47→21:35)
[2018-04-07] MEDS: IBUPROFEN 800 MG TABLET PO SCH ×2 (11:48→18:21)
--- NOTE | 2018-04-07 11:56 | Ultrasound Report ---
Procedure Date: 04/07/2018 Accession Number: [id number] / [id number] Procedure: US - Pelvic Complete CPT Code: FULL RESULT: EXAM: PELVIC ULTRASOUND EXAM DATE: 04/07/2018 11:30 AM. CLINICAL HISTORY: The patient is status post vaginal delivery this morning followed by dilatation and curettage. COMPARISON: . TECHNIQUE: Realtime transabdominal pelvic scan performed to identify the uterus and adnexa and as an overview of other pelvic structures, with static image documentation. FINDINGS: Uterus: 18.9 x 8.5 x 12.4 cm, volume 1042 cc. Anteverted position. The cervix is open and contains gas and debris and the endometrium. The myometrium appears heterogeneous with focal increased vascularity on the right aspect of the uterus reaching to the endometrium. The ovaries are not seen on either side. Free Fluid: A trace amount is identified, felt to be within physiologic limits. Other: None. IMPRESSION: Findings are concerning for persistent products of placenta accreta spectrum. RADIA
[2018-04-07 12:40] LABS: BASOPHILS % (AUTO) 0.1 %; LYMPHOCYTES # (AUTO) 0.9 10^3/uL (1.5-3.5); LYMPHOCYTES % (AUTO) 3.7 %; MEAN CORPUSCULAR HEMOGLOBIN 28.4 pg (27.0-31.0); MEAN CORPUSCULAR HGB CONC 34.4 g/dL (32.0-36.0); MEAN CORPUSCULAR VOLUME 82.5 fL (81.0-99.0); MEAN PLATELET VOLUME 6.9 fL (7.9-10.8); MONOCYTES % (AUTO) 7.9 %; NEUTROPHILS # (AUTO) 21.9 10^3/uL (1.5-6.6); NEUTROPHILS % (AUTO) 88.3 %; PLT - PLATELET COUNT 183 10^3/uL (130-450); RED BLOOD COUNT 3.89 10^6/uL (4.20-5.40); RED CELL DISTRIBUTION WIDTH 13.2 % (12.0-15.0); WHITE BLOOD COUNT 24.8 x10^3/uL (4.8-10.8)
[2018-04-07 13:08] LABS: PLATELET ESTIMATE, MANUAL NORMAL (130-450,000) (NORMAL); PLATELET MORPHOLOGY NORMAL APPEARANCE (NORMAL); RBC MORPHOLOGY (MULTIPLE) NORMAL APPEARANCE (NORMAL)
[2018-04-07] MEDS: miSOPROStol 100 MCG TABLET BC SCH ×2 (17:43→17:46)
[2018-04-07 18:09] LABS: HGB - HEMOGLOBIN 9.5 g/dL (12.0-16.0); MEAN CORPUSCULAR HEMOGLOBIN 28.2 pg (27.0-31.0); MEAN CORPUSCULAR HGB CONC 34.5 g/dL (32.0-36.0); MEAN CORPUSCULAR VOLUME 81.7 fL (81.0-99.0); MEAN PLATELET VOLUME 6.7 fL (7.9-10.8); RED BLOOD COUNT 3.38 10^6/uL (4.20-5.40); RED CELL DISTRIBUTION WIDTH 13.4 % (12.0-15.0); WHITE BLOOD COUNT 18.2 x10^3/uL (4.8-10.8)
[2018-04-07] MEDS: SIMETHICONE CHEW 80 MG TABLET PO SCH ×3 (18:22→21:39)
[2018-04-08] MEDS: IBUPROFEN 800 MG TABLET PO SCH ×5 (00:01→21:24)
[2018-04-08] MEDS: SIMETHICONE CHEW 80 MG TABLET PO SCH (08:56)
[2018-04-08] MEDS: DOCUSATE SODIUM 100 MG CAPSULE PO SCH ×2 (08:56→21:24)
--- NOTE | 2018-04-08 12:29 | PROVIDER PROGRESS NOTE ---
Subjective - Prog Note Date Prog Note Date: 04/08/18 Prog Note Time: 12:00 - Subjective Pt reports feeling: Improved Subjective: Sandra is doing well. She is ambulating & voiding w/o incident. She is tolerating po intake. She has not had a BM. She is not taking any analgesics & denies discomfort. She denies lightheadedness/dizziness/exhaustion. She is pleased w/ her infant & is exclusively w/o complaint. Objective - Vital Signs/Intake & Output Reviewed Vital Signs: Yes Vital Signs: Vital Signs x48h Temp Pulse Resp BP Pulse Ox 04/08/18 07:45 36.9 C 88 16 102/62 100 Intake & Output: Intake & Output 04/05/18 04/06/18 04/07/18 04/08/18 23:59 23:59 23:59 23:59 Intake Total 2650.783 2200 Output Total 2 3625 Balance 2648.783 -1425 - Objective General Appearance: positive: No acute distress, Alert Eyes Bilateral: positive: Normal inspection Respiratory: positive: Chest non-tender, No respiratory distress, Breath sounds nml Cardiovascular: positive: Regular rate & rhythm, No murmur Abdomen: positive: Tenderness (slight tenderness to palpation; FFU-1) Skin: positive: Color nml, No rash, Warm, Dry Extremities: positive: Non-tender, Full ROM, Nml appearance, No pedal edema. negative: Calf tenderness, Conrado's sign/cords Neurologic/Psychiatric: positive: Oriented x3, CN's nml (2-12), Motor nml, Sensation nml, Mood/affect nml - Lab Results Fish Bones: 04/07/18 17:58 Other Labs: Lab Results x24hrs 04/07/18 04/07/18 Range/Units 17:58 12:11 WBC 18.2 H 24.8 H (4.8-10.8) x10^3/uL RBC 3.38 L 3.89 L (4.20-5.40) 10^6/uL Hgb 9.5 L 11.0 L (12.0-16.0) g/dL Hct 27.6 L 32.0 L (37.0-47.0) % MCV 81.7 82.5 (81.0-99.0) fL MCH 28.2 28.4 (27.0-31.0) pg MCHC 34.5 34.4 (32.0-36.0) g/dL RDW 13.4 13.2 (12.0-15.0) % Plt Count 174 183 (130-450) 10^3/uL MPV 6.7 L 6.9 L (7.9-10.8) fL Neut # (Auto) 21.9 H (1.5-6.6) 10^3/uL Lymph # (Auto) 0.9 L (1.5-3.5) 10^3/uL [place] # (Auto) 2.0 H (0.0-1.0) 10^3/uL Eos # (Auto) 0.0 (0.0-0.7) 10^3/uL Baso # (Auto) 0.0 (0.0-0.1) 10^3/uL Absolute Nucleated RBC 0.00 x10^3/uL Nucleated RBC % 0.0 /100WBC Manual Slide Review Indicated Platelet Estimate NORMAL (130-450,000) (NORMAL) Platelet Morphology NORMAL APPEARANCE (NORMAL) RBC Morph Micro Appear NORMAL APPEARANCE (NORMAL) - Diagnostic Imaging Diagnostic Imaging Results: positive: Final report reviewed, Other (findings consistent w/ retained placental fragments, possible accreta, Dr. Sana MD, back-up EXECUTIVE SALES ASSISTANT notified) ABX Reporting Has patient been on IV antibiotics over the past 48 hours?: Yes Assessment/Plan - Problem List (1) (normal spontaneous vaginal delivery) Impression: 22 y/o s/p 04/07/2018 w/ D&C s/p delivery for retained placenta PPD #1, normal uterine involution Bleeding well-managed s/p PPH mild anemia, asymptomatic & hemodynamically stable Radiologic evidence of placental accreta w/ possible retained POCs Adequate pain control w/o analgesia well P: 1. requested consultation from Dr. Sana MD, to assess possible retained POCs s/p D&C 2. Ongoing routine pp care 3. PO iron supplementation & encouraged increased po hydration 4. support provided & to continue ongoing fashion 5. Repeat CBC in am, earlier as clinically indicated 6. Await further plan for management from Dr. Hood s/p evaluation
[2018-04-08 12:34] LABS: BASOPHILS % (AUTO) 0.3 %; EOSINOPHILS # (AUTO) 0.1 10^3/uL (0.0-0.7); EOSINOPHILS % (AUTO) 0.6 %; HGB - HEMOGLOBIN 8.7 g/dL (12.0-16.0); LYMPHOCYTES # (AUTO) 2.1 10^3/uL (1.5-3.5); LYMPHOCYTES % (AUTO) 15.9 %; MEAN CORPUSCULAR HEMOGLOBIN 28.1 pg (27.0-31.0); MEAN CORPUSCULAR HGB CONC 34.1 g/dL (32.0-36.0); MEAN CORPUSCULAR VOLUME 82.6 fL (81.0-99.0); MEAN PLATELET VOLUME 6.6 fL (7.9-10.8); MONOCYTES # (AUTO) 0.8 10^3/uL (0.0-1.0); MONOCYTES % (AUTO) 6.2 %; NEUTROPHILS # (AUTO) 10.3 10^3/uL (1.5-6.6); PLT - PLATELET COUNT 206 10^3/uL (130-450); RED CELL DISTRIBUTION WIDTH 13.6 % (12.0-15.0); WHITE BLOOD COUNT 13.4 x10^3/uL (4.8-10.8)
--- NOTE | 2018-04-08 13:49 | PROVIDER PROGRESS NOTE ---
Subjective - Prog Note Date Prog Note Date: 04/08/18 Prog Note Time: 12:40 - Subjective Subjective: Mrs. Padilla is a 22-year-old primigravida who delivered yesterday a living male that was complicated by a retained placenta . Dr. Casas was called in consultation and performed a dilatation and curettage in the OR. Operative note in cardiac nurse specialist. During the D&C, there was suspicion that fragments were still retained and a post operative ultrasound ordered. The ultrasound confirmed retained placenta with the features of increta. I reviewed the films with the radiologist and in the right fundal posterior aspect of the endometrium there is a heterogeneous area of increased vascularity that reaches approximately 50% into the myometrium. This appears to be an increta which explains the delivery and D&C findings. Typical treatment for increase his hysterectomy but the patient is a prima and desires further children. Currently the bleeding is not excessive and she is hemodynamically stable. Currently I am researching the past option for conservative therapy and the appropriate Utero tonic. Tentative plan is to provide the hospital observation , backup blood bank, antibiotic coverage and uterine tonic. If stabilized, patient will be evaluated at a later date and if necessary hysteroscopic resection could be performed.Conservative therapy is not without its risks: Severe bleeding 53%; sepsis 6%; hysterectomy 19% average range 6 did not 31%; 0.3% and subsequent 97%. Discussed the situation with Sebastián verma the stamp mounter who usually cares for the patient. Will place 2 units of packed red blood cells on hold in case severe bleeding occurs. Objective - Vital Signs/Intake & Output Vital Signs: Vital Signs x48h Temp Pulse Resp BP Pulse Ox 04/08/18 12:30 97.5 F L 101 H 18 110/65 100 04/08/18 07:45 98.4 F 88 16 102/62 100 Intake & Output: Intake & Output 04/05/18 04/06/18 04/07/18 04/08/18 23:59 23:59 23:59 23:59 Intake Total 2650.783 2200 Output Total 2 3625 Balance 7498.233 -9925 - Lab Results Fish Bones: 04/08/18 12:27 Other Labs: Lab Results x24hrs 04/08/18 04/07/18 Range/Units 12:27 17:58 WBC 13.4 H 18.2 H (4.8-10.8) x10^3/uL RBC 3.10 L 3.38 L (4.20-5.40) 10^6/uL Hgb 8.7 L 9.5 L (12.0-16.0) g/dL Hct 25.6 L 27.6 L (37.0-47.0) % MCV 82.6 81.7 (81.0-99.0) fL MCH 28.1 28.2 (27.0-31.0) pg MCHC 34.1 34.5 (32.0-36.0) g/dL RDW 13.6 13.4 (12.0-15.0) % Plt Count 206 174 (130-450) 10^3/uL MPV 6.6 L 6.7 L (7.9-10.8) fL Neut # (Auto) 10.3 H (1.5-6.6) 10^3/uL Lymph # (Auto) 2.1 (1.5-3.5) 10^3/uL [place] # (Auto) 0.8 (0.0-1.0) 10^3/uL Eos # (Auto) 0.1 (0.0-0.7) 10^3/uL Baso # (Auto) 0.0 (0.0-0.1) 10^3/uL Absolute Nucleated RBC 0.00 x10^3/uL Nucleated RBC % 0.0 /100WBC
[2018-04-08] MEDS: AZITHROMYCIN 250 MG TABLET PO SCH (15:56)
[2018-04-08] MEDS: miSOPROStol 100 MCG TABLET PO SCH ×2 (15:56→22:29)
[2018-04-08] MEDS: ACETAMINOPHEN 325 MG TABLET PO PRN ×2 (16:51→22:28)
--- NOTE | 2018-04-08 17:43 | HISTORY & PHYSICAL EXAMINATION ---
DATE OF SERVICE: 04/08/2018 Physician: Emeka Hood MD OBSTETRICAL CONSULT DIAGNOSES 1. Possible retained placental products after D and C. 2. Possible accreta. 3. Maternal GBS status positive. 4. Recent vaginal delivery and dilatation and curettage. HISTORY OF PRESENT ILLNESS: Patient is a 22-year-old primiparous patient who was cared for by [facility] and presented at 39 weeks, 1 day gestation in labor. She is known GBS positive and given prophylactic antibiotics. She was induced with misoprostol for logistical reasons. Maternal blood type O positive, antibody screen negative, GBS positive , rubella immune. Patient had no prior uterine surgery. She was augmented and went on to have a vaginal delivery of a living male infant, weighing 7 pounds 12 ounces, with a minor laceration. Total blood loss was 350. Unfortunately, placenta was only partially expelled in fragments. Manual removal was attempted , but unsuccessful. Dr. Emeka Casas was called and performed a D and C. During that D and C, a spongy feel was a nnoted post D and C ultrasound ordered. Post D&C ultrasound revealed a heterogeneous myometrium in the right posterior aspect of the uterus with focal increased vascularity. There was no significant amount of free fluid within the abdomen. Concern was for potential placenta accreta. The vascularity penetrated over half the myometrium. I reviewed the ultrasound with the Radiologist in detail, noting signs that may indicate accreta. Clinically, the patient was stable and had a hemoglobin of 8.7 and mild leukocytosis of 13,000. Her bleeding had a markedly decreased. PAST MEDICAL HISTORY: No chronic disease history. No STI history. Patient has a history of bipolar disorder with obsessive-compulsive features inclusive of panic attack and suicide attempt. PAST SURGICAL HISTORY: None. No uterine surgery, D and Cs, or terminations. MEDICATIONS 1. Tylenol 650 q. 6 hours p.r.n. 2. Benadryl 25 mg q. 6 hours p.r.n. 3. Colace. 4. Fentanyl. 5. Ferric sulfate. 6. Motrin 800 q. 6 hours. 7. Oxycodone 5 mg q. 4 hours p.r.n. 7. Pitocin drip, finished. ALLERGIES: NO KNOWN DRUG ALLERGIES. SOCIAL HISTORY: . A [place] dependent. No drug, tobacco, or alcohol use. FAMILY HISTORY: Mother asthma. Breast cancer paternal relatives, stroke paternal relatives. Mother arthritis. Mother lupus, mental illness. REVIEW OF SYSTEMS CONSTITUTIONAL: No fevers, chills, or malaise. HEENT: Negative. CARDIOVASCULAR: Negative. PULMONARY: Negative. BREASTS: Lactating. No problems with noted. GASTROINTESTINAL: Negative. GENITOURINARY: Negative. MUSCULOSKELETAL: Negative. NEUROLOGIC: Negative. PSYCHIATRIC: Currently in a good mood, very happy. PHYSICAL EXAMINATION GENERAL: The patient resting comfortably in bed, surrounded by family, alert and oriented, cooperative. VITAL SIGNS: Temp 97.5, pulse 101, 90 at resting, blood pressure 110/65, respiratory rate 18, pulse oximetry 100. HEENT: EOMI, nonicteric sclerae. Supple neck, no thyromegaly. Good dentition. LUNGS: Clear. CARDIAC: Regular, slight flow murmur. No gallop or rub. BREASTS: Full, lactating. No tenderness. ABDOMEN: No organomegaly, soft, minimal tenderness on deep palpation right side , no rebound. UTERUS: 17-week size, firm. On bimanual exam, no tenderness noted. CERVIX: Open, draining a minimal amount of blood. Vagina stitches intact. Vulva no lesions. EXTREMITIES: Moves all 4 extremities well. No arthritides noted. SKIN: No petechia or ecchymoses. NEUROLOGIC: Grossly intact. Sensory and motor: Cranial nerves grossly intact. LABORATORY DATA: Baseline hemoglobin 11.2, 1 day post . On the day of delivery 9.5, post-delivery day 1, 8.7. White count high of 24.8. Currently, 13.4, platelets 206. ASSESSMENT: The patient experienced a normal delivery with notable post- delivery events, retained placenta. Placenta could not be manually removed, and therefore patient underwent right a D and C. During the D and C, there was suspicion of possible retained product, and post D and C ultrasound study was obtained. The ultrasound alone does not conclusively diagnose increta. MRI would be of limited use. The clinical course thus far seems inconsistent with increta because one would expect hemorrhage. There is no uterine tenderness or signs of infection at the current time. Repeat D and C will probably not be necessary since the placenta fragment hould expel spontaneously, particularly with the aid of Cytotec. Looking at the overall risk of increta in a primiparous young patient that has never had uterine instrumentation or surgery is quite low. At this point, expectant management provides the best course. PLAN: Explained the situation and findings to the patient and her . Did not recommend repeating the D and C immediately; however, if bleeding or signs of infection occur, D&C may be necessary. Intend to give Cytotec 100 mcg to aid in uterine involution and azithromycin. Patient will be reevaluated in the morning to determine if these medications should be continued post discharge. Risks and benefits of expectant management were explained to the patient, as well as the need for self monitoring for signs of infection. Patient understands she must call in if she develops a temperature of 100.5 or greater, foul vaginal discharge, clot-like uterine bleeding and/or severe abdominal pain. She is warned to expect the possible passage of placental material which should be saved for analysis. TD: 04/08/2018 15:58 SWAPNA
[2018-04-08] MEDS: oxyCODONE 5 MG TABLET PO PRN ×2 (18:16→23:43)
[2018-04-09] MEDS: IBUPROFEN 800 MG TABLET PO SCH ×2 (03:34→09:21)
[2018-04-09] MEDS: oxyCODONE 5 MG TABLET PO PRN ×2 (03:58→08:08)
[2018-04-09] MEDS: ACETAMINOPHEN 325 MG TABLET PO PRN ×2 (04:04→10:06)
[2018-04-09] MEDS: miSOPROStol 100 MCG TABLET PO SCH ×2 (04:04→10:06)
[2018-04-09 06:03] LABS: BASOPHILS % (AUTO) 0.4 %; EOSINOPHILS # (AUTO) 0.1 10^3/uL (0.0-0.7); EOSINOPHILS % (AUTO) 1.2 %; HGB - HEMOGLOBIN 8.4 g/dL (12.0-16.0); LYMPHOCYTES # (AUTO) 2.9 10^3/uL (1.5-3.5); LYMPHOCYTES % (AUTO) 27.8 %; MEAN CORPUSCULAR HEMOGLOBIN 27.9 pg (27.0-31.0); MEAN CORPUSCULAR HGB CONC 33.5 g/dL (32.0-36.0); MEAN CORPUSCULAR VOLUME 83.3 fL (81.0-99.0); MEAN PLATELET VOLUME 6.7 fL (7.9-10.8); MONOCYTES # (AUTO) 0.8 10^3/uL (0.0-1.0); MONOCYTES % (AUTO) 8.1 %; NEUTROPHILS # (AUTO) 6.5 10^3/uL (1.5-6.6); NEUTROPHILS % (AUTO) 62.5 %; PLT - PLATELET COUNT 191 10^3/uL (130-450); RED BLOOD COUNT 2.99 10^6/uL (4.20-5.40); RED CELL DISTRIBUTION WIDTH 13.4 % (12.0-15.0); WHITE BLOOD COUNT 10.4 x10^3/uL (4.8-10.8)
[2018-04-09] MEDS ORDERED: FERROUS SULFATE 325 MG TABLET PO SCH (08:00)
[2018-04-09] MEDS: AZITHROMYCIN 250 MG TABLET PO SCH (09:21)
[2018-04-09] MEDS: DOCUSATE SODIUM 100 MG CAPSULE PO SCH (09:21)
--- NOTE | 2018-04-09 12:22 | PROVIDER PROGRESS NOTE ---
Subjective - General Admit Date: 04/06/18 Procedure Date: 04/07/18 Post Op Days: 2 Procedure Performed: palcenta removal with curratage - Review of Systems Drain Type: none General: positive: No symptoms, Fever (pain 3/10 breast feeding) Objective - Patient Data Reviewed Vital Signs: Yes Vital Signs: Vital Signs x48h Temp Pulse Resp BP 04/09/18 07:45 36.6 C 78 18 116/50 L Intake & Output: Intake and Output Totals x24h 04/07/18 04/08/18 04/09/18 23:59 23:59 23:59 Intake Total 2200 Output Total 3625 Balance -1425 - Lab Results Lab Results: 04/09/18 05:45 Other Lab Results: Lab Results x24hrs 04/09/18 04/08/18 Range/Units 05:45 12:27 WBC 10.4 13.4 H (4.8-10.8) x10^3/uL RBC 2.99 L 3.10 L (4.20-5.40) 10^6/uL Hgb 8.4 L 8.7 L (12.0-16.0) g/dL Hct 24.9 L 25.6 L (37.0-47.0) % MCV 83.3 82.6 (81.0-99.0) fL MCH 27.9 28.1 (27.0-31.0) pg MCHC 33.5 34.1 (32.0-36.0) g/dL RDW 13.4 13.6 (12.0-15.0) % Plt Count 191 206 (130-450) 10^3/uL MPV 6.7 L 6.6 L (7.9-10.8) fL Neut # (Auto) 6.5 10.3 H (1.5-6.6) 10^3/uL Lymph # (Auto) 2.9 2.1 (1.5-3.5) 10^3/uL Walker # (Auto) 0.8 0.8 (0.0-1.0) 10^3/uL Eos # (Auto) 0.1 0.1 (0.0-0.7) 10^3/uL Baso # (Auto) 0.0 0.0 (0.0-0.1) 10^3/uL Absolute Nucleated RBC 0.00 0.00 x10^3/uL Nucleated RBC % 0.0 0.0 /100WBC - Current Medications Current Medications: Current Medications Generic Name Dose Route Start Last Admin Trade Name Freq PRN Reason Stop Dose Admin Acetaminophen 650 mg 04/06/18 09:41 04/09/18 10:06 Tylenol PO 650 mg Q6H PRN Administration Pain or Fever Azithromycin 250 mg 04/08/18 16:00 04/09/18 09:21 Zithromax PO 250 mg DAILY YE Administration Docusate Sodium 100 mg 04/07/18 09:00 04/09/18 09:21 Colace 100mg Capsule PO 100 mg BID YE Administration Ferrous Sulfate 325 mg 04/09/18 08:00 04/09/18 08:09 Feosol PO 325 mg DAILYWM YE Administration Lactated Ringer's 1,000 mls @ 100 mls/hr 04/06/18 10:00 04/07/18 01:05 Lr IV 150 mls/hr .Q10H YE Administration Penicillin G Potassium 2,500, 100 mls @ 200 mls/hr 04/06/18 15:00 04/07/18 17 :47 000 unit/ Sodium Chloride IV Not Given Q4H YE Oxytocin/Sodium Chloride 500 mls @ 1 mls/hr 04/06/18 20:00 04/06/18 22:29 Pitocin/Sodium Chloride IV 1 milliunit/min TITR YE 1 mls/hr Protocol Administration 1 MILLIUNIT/MIN Ibuprofen 800 mg 04/07/18 09:00 04/09/18 09:21 Motrin PO 800 mg Q6H YE Administration Misoprostol 50 mcg 04/06/18 09:41 04/07/18 17:46 Cytotec BC Not Given Q4HR YE Misoprostol 100 mcg 04/08/18 16:00 04/09/18 10:06 Cytotec PO 04/09/18 16:00 100 mcg QID YE Administration Oxycodone HCl 5 mg 04/07/18 10:55 04/09/18 08:08 Roxicodone PO 5 mg Q4HR PRN Administration Severe Pain Simethicone 80 mg 04/07/18 14:00 04/08/18 08:56 Mylicon PO 80 mg TID YE Administration Sodium Chloride 10 ml 04/06/18 09:36 04/06/18 20:00 Normal Saline Flush 0.9% IVP 10 ml PRN PRN Administration NEEDED PER PROVIDER ORDERS - Physical Exam General Appearance: positive: No acute distress, Alert Eyes Bilateral: positive: Normal inspection, PERRL Respiratory: positive: Chest non-tender, No respiratory distress, Breath sounds nml Cardiovascular: positive: Regular rate & rhythm, No murmur, No gallop, Irregularly irregular Abdomen: positive: Non-tender, Tenderness, Mass (U-2). negative: Guarding Back: positive: Nml inspection. negative: CVA tenderness (R), CVA tenderness (L ) Extremities: negative: Calf tenderness, Conrado's sign/cords Impression/Plan - Problem List Problem List: PPD# 2 manual removal of Placental remnant and curettage. Anemia secondary to blood loss Placenta acrita spectrum. Discharge medication Motrin 800 mg #30 Oxycodone 5 mg #15 iron 325 mg #30 colace 100mg #30 methergin 0.2 mg #6 Azithromycin 250 mg #4 RTC 1 week.
--- NOTE | 2018-04-09 12:42 | Discharge Plan ---
Discharge Plan Disposition: 01 Home, Self Care Condition: Good Diet: Regular Activity Restrictions: pelvic rest 6 weeks Shower Restrictions: Yes Driving Restrictions: Yes (no driving when taking narcotics) No Smoking: If you smoke, Please STOP! Call for help.
[2018-04-09 14:15] VITALS: BP 111/67
--- NOTE | 2018-04-09 17:51 | DISCHARGE SUMMARY ---
Physician: Emeka Casas MD DATE OF ADMISSION: 04/06/2018 DATE OF DISCHARGE: 04/09/2018 ADMITTING DIAGNOSIS: A 22-year-old G1, P0, 39.1 weeks here for cervical ripening. She is GBS positi ve. DISCHARGE DIAGNOSES 1. A 22-year-old G1, P0, 39.1 weeks here for cervical ripening. She is GBS positive. 2. Retained placenta. 3. Possible placenta accreta. 4. Anemia. 5. Shoulder dystocia. PROCEDURES 1. Cervical ripening. 2. Epidural. 3. Assisted vaginal delivery. 4. Placental removal under anesthesia with endometrial curettage. PRESENTING HISTORY: Patient is a 22-year-old G1, P0 female who was 39.1 weeks. She was here for ind uction of labor. She was noted to be GBS positive. Indeed, her course was unremarkable. S he had early visits starting at 6 weeks, which agreed with her EDC. She presents for induction of la bor. LABORATORIES: Preop CBC showed a white count of 10, hemoglobin 11.2, hematocrit was 32.0, platelets were 221. Postop, her hemoglobin fell to a ranulfo of 8.4, hematocrit was 24.9, platelets were 191. H er white count reached a zenith of 24.8 and on discharge was 10.4. HOSPITAL COURSE: Patient was admitted, at which time her cervix was ripened. She reached complete a nd she successfully delivered a live male . There were no nuchal cords. There was a mild shou lder dystocia, which resolved with an anterior shoulder delivery. She had a 90 second dystocia. A l germaine male infant with Apgars 8 and 9. The did well; however, following delivery of the infant, the placenta appeared to fragment and only partially was delivered. The remaining placental tissue was grasped with a ring forceps and was unable to be delivered. Dr. Casas was summoned, at which time without being able to deliver the placenta, she was taken back to the operating room expeditiously. Her epidural was raised with good analgesia and the remainder of the placenta was delivered. At thi s point, the endometrial cavity was explored manually and felt that there was some tissue noted in th e uterus. Curettage was accomplished with no further tissue being removed. She was taken to recover y in stable condition. Total blood loss was roughly 800 mL. The patient tolerated the delivery and procedure well. , she had an ultrasound which showed evidence of what appears to be an acc adeline spectrum in the uterus on the right hand side. She has had minimal bleeding since then. Her he moglobin has drifted down to 8.4. She has been afebrile. Vital signs have been stable. The [facility] was consulted regarding management and their opinion was to use uterotonics, antibi otics, and close followup. The patient has been cautioned about bleeding as well as chills and fever s. She is to follow up in 1 week. DISCHARGE MEDICATIONS 1. Motrin 800 mg. 2. Oxycodone 5 mg. 3. Methergine 0.2 mg. 4. Azithromycin 250 mg. 5. Iron sulfate 325 mg. 6. Colace 100 mg. TD: 04/09/2018 12:49
--- NOTE | 2018-04-09 23:32 | Labor Flowsheet ---
Labor Flowsheet Datetime Report Generated by CPN: 04/09/2018 14:32 Datetime: 04/09/2018 12:38 VITAL SIGNS NBP Sys/Rebeca/Mean (mmHg): 111 : 67 : 78 Pulse: 90 LaborFlag: Labor Datetime: 04/08/2018 12:24 SpO2 (%): 100 Datetime: 04/07/2018 08:07 Comments: Del of head at 0807. No nuchal cord.. Shoulder dystocia noted. McRobert's Maneuver done - unsuccessful . A Yung CNM attempted to deliver the anterior shoulder but this was unsuccessful. P osterior shoulder was successfully delivered. The baby's body was born at 0808 after Approx 90 sec o f delay. The baby was placed on mom's tummy and then went over ot the warmet to be examined by Dr Yan boyce. Apgars were 8/9 Datetime: 04/07/2018 07:59 ASSESSMENT A Monitor Mode: External US FHR Baseline Changes: No Baseline Change Variability: Moderate 6-25 bpm Accelerations: 15X15 Decelerations: Variable Category: Category II Datetime: 04/07/2018 07:46 STAGE 2 Pushing: Coached on Pushing Pushing Position: Pushing with Contractions; Pushing Lithotomy Stage 2 Comments: pt pusing - slow delivery of head Datetime: 04/07/2018 07:45 Frequency (min): 2-4 Quality: Strong Duration (sec): 40-70 Resting Tone (Palpate): Relaxed Nurse Giving Report: Karena Bo RN Nurse Receiving Report: Karen Golden RN Datetime: 04/07/2018 07:41 FHR Baseline Rate : 140 Membrane Status: Meconium Pushing Progress: Descent with Pushing Datetime: 04/07/2018 07:34 COMMUNICATION Communication: Call/Page Placed to Provider Notification Reason: Other Communication Comments: Dr Eagle called to come to the as per NRP porotocol for meconium Datetime: 04/07/2018 07:30 UTERINE ACTIVITY Monitor Mode: External Pattern: Normal: <= 5 Contractions in 10 Minutes Actions for Decelerations: Oxygen Applied (Annotations: A. Yung at bedside) Datetime: 04/07/2018 07:15 Stage of : Labor Respirations: 20 Temperature (C): 36.8 PAIN Pain Scale: 8 Pain Presence: Constant Pain Type: Contraction; Pressure Pain Location: Abdomen; Back; Perineum Pain Goal: 6 Pain Relief Measures: Epidural Given; Comfort Measures Pain Coping: Crying Pain Assessment Comments: pushing with contractions, Card Fixer at bedside Datetime: 04/07/2018 06:30 VAGINAL EXAM Dilatation (cm): 10.0 Effacement (%): 100 Station: 2 Exam by: A Yung, CNM Datetime: 04/07/2018 05:00 Temperature Route: Oral Datetime: 04/07/2018 03:55 MEDICATIONS Pitocin (milliunits): Increased to @ 5 Datetime: 04/07/2018 03:38 ANESTHESIA Anesthesia Plans: Epidural Anesthesia Comments: A Diallo, BEADING INSTALLER out of room Datetime: 04/07/2018 03:33 Epidural Procedure Other: Pump Started Datetime: 04/07/2018 03:27 Epidural Positioning: Sitting Epidural Procedure: Test Dose Datetime: 04/07/2018 03:26 Monitor Interventions for UA: [place] Adjusted Monitor Interventions for FHR: Ultrasound Adjusted Datetime: 04/07/2018 03:12 PROCEDURE TIME OUT Procedure Type: TIme out done with patient, A Diallo, DEMETRIA and M. Betzy, rn delivery Verify: Correct Patient Identity; Accurate Procedure Consent Form; Agreement on Procedure to be Done; Correct Patient Position; Relevant Images and Results are Properly Labeled and Displayed ; Addressed Need to Administer Antibiotics or Fluids for Irrigation; Safety Precautions Based on Anabel ent History or Medication Use Datetime: 04/07/2018 02:12 Anesthesia Level Check: T12 Datetime: 04/06/2018 22:40 I/O Interventions: Carroll Cath Inserted Datetime: 04/06/2018 22:11 Cervix, Consistency: Soft Cervix, Position: Midposition Datetime: 04/06/2018 20:00 MATERNAL ASSESSMENT Level of Consciousness: Fully Conscious DTR's/Clonus: DTRs 2+ Headache: Denies Breath Sounds, Left: Clear and Equal Breath Sounds, Right: Clear and Equal Nausea/Vomiting: Denies RUQ Epigastric Pain: Denies Datetime: 04/06/2018 19:47 Membranes Ruptured Date/Time: 04/06/2018 19:47 Membranes Rupture Method: Artificial Amniotic Fluid Color: Clear Amniotic Fluid Amount: Small Amniotic Fluid Odor: None Membrane Comments: AROM by Elzbieta Barragan CNM SHEIKH'S SCORE Dilatation (cm): 3-4 cms Effacement: >80_ effaced Station: minus 1 to 0 Consistency: Soft Position: Midposition Total Sheikh's Score: 10 : 9-14 = Usually no failure for induction Datetime: 04/06/2018 19:30 Patient Care Comments: Pt back to bed and monitors on after Jacuzzi tub. Datetime: 04/06/2018 18:58 PATIENT CARE Oxygen Method: Room Air Datetime: 04/06/2018 15:00 Antibiotics: Penicillin IV (Units) @ 2.5 Datetime: 04/06/2018 14:30 Cervical Ripening Agents: Cytotec @ 50
== END 2018-04-09 14:00 | disposition home or self-care (01) | DRG 767 ==
LOC: WFO 07:59 → FBP 08:01 → WFO 09:39 → FBP 09:40 → OBSVTOIN 19:49
PROVIDERS: ADMIT Nurse Practitioner Obstetrics & Gynecology; ATTEND Obstetrics & Gynecology
PROC: 10D17Z9 Manual Extraction of Products of Conception, Retained, Via Natural or Artificial Opening (ICD-10-PCS; 2018-04-07)
PROC: 0KQM0ZZ Repair Perineum Muscle, Open Approach (ICD-10-PCS; 2018-04-07)
PROC: 10907ZC Drainage of Amniotic Fluid, Therapeutic from Products of Conception, Via Natural or Artificial Opening (ICD-10-PCS; 2018-04-07)
PROC: 3E033VJ Introduction of Other Hormone into Peripheral Vein, Percutaneous Approach (ICD-10-PCS; 2018-04-07)
PROC: 3E0P7VZ Introduction of Hormone into Female Reproductive, Via Natural or Artificial Opening (ICD-10-PCS; 2018-04-07)
PROC: 10E0XZZ Delivery of Products of Conception, External Approach (ICD-10-PCS; principal; 2018-04-07 08:45)
DX: O99.824 Streptococcus B carrier state complicating childbirth (principal); Z37.0 Single live birth; O73.0 Retained placenta without hemorrhage; Z3A.39 39 weeks gestation of pregnancy; D64.9 Anemia, unspecified; O70.1 Second degree perineal laceration during delivery; O99.343 Other mental disorders complicating pregnancy, third trimester; F31.9 Bipolar disorder, unspecified; F42.9 Obsessive-compulsive disorder, unspecified; O66.0 Obstructed labor due to shoulder dystocia
CPT/HCPCS: 36415; 76856; 85025; 85027; 96361; 96365; 96366

== ENCOUNTER 2018-04-14 17:52 | Outpatient (CLI) | payer OTHER, MEDICAID ==
--- NOTE | 2018-04-14 19:52 | Ultrasound Report ---
Procedure Date: 04/14/2018 Accession Number: [id number] / [id number] Procedure: US - Pelvic Complete CPT Code: FULL RESULT: EXAM: PELVIC ULTRASOUND EXAM DATE: 04/14/2018 06:44 PM. CLINICAL HISTORY: 1 week post vaginal delivery. Concern for retained placenta without hemorrhage. Only half of placenta removed at delivery. COMPARISON: PELVIS COMPLETE 04/07/2018 11:15 AM. TECHNIQUE: Realtime transabdominal pelvic scan performed to identify the uterus and adnexa and as an overview of other pelvic structures, followed by transvaginal scan to provide greater detail of the uterus and adnexa, with static image documentation. FINDINGS: Uterus: 17.1 x 5.4 x 11.5 cm, volume 555 cc. Anteverted position. Enlarged. Masses: None. Endometrium: 2.3 mm. Retained heterogeneous material 2.3 x 6.7 cm. Small amount of fluid anteriorly. Cervix: Unremarkable. Right Ovary: 3.7 x 2.0 x 2.3 cm, volume 8.9 cc. Normal echotexture and blood flow. Left Ovary: 4.5 x 2.3 x 2.7 cm, volume 14.6 cc. Normal echotexture and blood flow. Free Fluid: None. Other: None. IMPRESSION: Heterogeneous abnormality within the endometrium 2.3 x 6.7 cm compatible with retained placenta. RADIA
== END 2018-04-14 17:53 | disposition home or self-care (01) ==
LOC: DI 17:52
PROVIDERS: ATTEND Registered Nurse
DX: O73.0 Retained placenta without hemorrhage (principal)
CPT/HCPCS: 76856

== ENCOUNTER 2018-04-15 14:22 | Outpatient (CLI) | payer OTHER, MEDICAID ==
[2018-04-15 18:49] LABS: BASOPHILS # (AUTO) 0.1 10^3/uL (0.0-0.1); BASOPHILS % (AUTO) 0.7 %; EOSINOPHILS # (AUTO) 0.2 10^3/uL (0.0-0.7); EOSINOPHILS % (AUTO) 2.2 %; LYMPHOCYTES # (AUTO) 2.5 10^3/uL (1.5-3.5); LYMPHOCYTES % (AUTO) 36.1 %; MEAN CORPUSCULAR HEMOGLOBIN 28.2 pg (27.0-31.0); MEAN CORPUSCULAR HGB CONC 33.9 g/dL (32.0-36.0); MEAN CORPUSCULAR VOLUME 83.3 fL (81.0-99.0); MEAN PLATELET VOLUME 6.6 fL (7.9-10.8); MONOCYTES # (AUTO) 0.6 10^3/uL (0.0-1.0); NEUTROPHILS # (AUTO) 3.6 10^3/uL (1.5-6.6); PLT - PLATELET COUNT 408 10^3/uL (130-450); RED BLOOD COUNT 3.89 10^6/uL (4.20-5.40); RED CELL DISTRIBUTION WIDTH 14.2 % (12.0-15.0)
== END 2018-04-15 14:23 | disposition home or self-care (01) ==
LOC: LAB.N 14:22
PROVIDERS: ATTEND Obstetrics & Gynecology
DX: D64.9 Anemia, unspecified (principal)
CPT/HCPCS: 36415; 85025

== ENCOUNTER 2018-04-18 16:51 | Emergency (ER) | payer OTHER, MEDICAID ==
[2018-04-18 17:34] VITALS: BP 125/82
[2018-04-18 18:06] LABS: BASOPHILS # (AUTO) 0.1 10^3/uL (0.0-0.1); BASOPHILS % (AUTO) 0.8 %; EOSINOPHILS # (AUTO) 0.2 10^3/uL (0.0-0.7); EOSINOPHILS % (AUTO) 2.3 %; HGB - HEMOGLOBIN 11.8 g/dL (12.0-16.0); LYMPHOCYTES # (AUTO) 2.7 10^3/uL (1.5-3.5); LYMPHOCYTES % (AUTO) 37.4 %; MEAN CORPUSCULAR HEMOGLOBIN 27.9 pg (27.0-31.0); MEAN CORPUSCULAR HGB CONC 33.8 g/dL (32.0-36.0); MEAN CORPUSCULAR VOLUME 82.5 fL (81.0-99.0); MEAN PLATELET VOLUME 6.1 fL (7.9-10.8); MONOCYTES # (AUTO) 0.5 10^3/uL (0.0-1.0); MONOCYTES % (AUTO) 7.3 %; NEUTROPHILS # (AUTO) 3.7 10^3/uL (1.5-6.6); NEUTROPHILS % (AUTO) 52.2 %; PLT - PLATELET COUNT 403 10^3/uL (130-450); RED BLOOD COUNT 4.23 10^6/uL (4.20-5.40); RED CELL DISTRIBUTION WIDTH 13.9 % (12.0-15.0); WHITE BLOOD COUNT 7.1 x10^3/uL (4.8-10.8)
[2018-04-18 18:19] LABS: ALBUMIN 3.4 g/dL (3.2-5.5); ALBUMIN/GLOBULIN RATIO 0.9 (1.0-2.2); BILIRUBIN,TOTAL 0.4 mg/dL (0.2-1.0); CALCIUM 8.9 mg/dL (8.5-10.3); CREATININE 0.7 mg/dL (0.4-1.0)
== END 2018-04-18 19:22 | disposition left against medical advice (07) ==
LOC: ED 16:51
DX: Z53.21 Procedure and treatment not carried out due to patient leaving prior to being seen by health care provider (principal)
CPT/HCPCS: 36415; 80053; 83690; 85025

== ENCOUNTER 2018-04-25 13:35 | Outpatient (CLI) | payer OTHER, MEDICAID ==
[2018-04-25] MEDS ORDERED: GADOBUTROL 7.5 MMOL/7.5 ML VIAL ONE (14:14)
[2018-04-25] MEDS ORDERED: GADOBUTROL 7.5 MMOL/7.5 ML VIAL IVP ONE (14:42)
--- NOTE | 2018-05-02 16:58 | MRI Report ---
REVISED: THIS REPORT WAS ORIGINALLY SIGNED ON 05/02/2018 @ 1658. THE EXAM DATE OF SERVICE WAS REVISED ON 05/08/2018. Reason: RETAINED PLACENTA W/O HEMORRHAGE Procedure Date: 04/25/2018 Accession Number: [id number] / [id number] Procedure: MRI - Pelvis W/WO CPT Code: FULL RESULT: EXAM: MR PELVIS WITH AND WITHOUT CONTRAST (MR FEMALE PELVIS) EXAM DATE: 04/25/2018 03:11 PM. CLINICAL HISTORY: RETAINED PLACENTA W/O HEMORRHAGE. COMPARISON: PELVIS COMPLETE 04/14/2018 PELVIS COMPLETE 04/07/2018 11:15 AM. TECHNIQUE: Multiplanar breath-hold T1, T2 obtained through the pelvis on an MR scanner. Images obtained before and after administration of 7.5 mL Gadavist intravenous contrast. FINDINGS: Reproductive Organs: Uterus: The uterus is anteverted and measures 10 x 5.6 x 8.1 cm with volume 237 cc. The endometrial stripe measures 5 mm. 3.5 x 1.3 x 1.3 cm right fundal endometrial region abnormality with diminished T1 and T2 signal. Probable nodular lateral enhancement best demonstrated on coronal postcontrast series 1601. Small amount of blood within endometrial cavity with increased T1 signal on precontrast Thrive series. Right Ovary: The right ovary measures 2.9 x 1.4 x 2.1 cm with volume 4.5 cc. The right ovary appears normal. Left Ovary: The left ovary measures 2.8 x 1.7 x 2.3 cm with volume 5.7 cc. The left ovary appears normal. Bowel: The visualized portions of the small bowel, colon, and rectum appear normal. Bladder: The urinary bladder appears normal. Other: Physiologic free fluid in cul-de-sac and adjacent to right adnexa. IMPRESSION: 1. Probable right fundal retained placenta, as an prior ultrasound exams. MTDD
== END 2018-04-25 13:36 | disposition home or self-care (01) ==
LOC: DI 13:35
PROVIDERS: ATTEND Obstetrics & Gynecology
DX: O73.0 Retained placenta without hemorrhage (principal)
CPT/HCPCS: 72197; A9585

== ENCOUNTER 2018-05-16 18:10 | Outpatient (CLI) | payer OTHER, MEDICAID ==
--- NOTE | 2018-05-16 20:07 | Ultrasound Report ---
Reason: RETAINED PLACENTA WITHOUT HEMORRAGE Procedure Date: 05/16/2018 Accession Number: [id number] / [id number] Procedure: US - Pelvic Complete CPT Code: FULL RESULT: EXAM: PELVIC ULTRASOUND EXAM DATE: 05/16/2018 06:57 PM. CLINICAL HISTORY: 5 weeks vaginal delivery. Retained placenta without hemorrhage. . COMPARISON: Ultrasound pelvis complete 04/14/2018 6:44 PM. MRI pelvis with/without 04/25/2018 2:22 PM. TECHNIQUE: Realtime transabdominal pelvic scan performed to identify the uterus and adnexa and as an overview of other pelvic structures, with static image documentation. Note that transvaginal scanning not performed. FINDINGS: Uterus: 10.2 x 3.5 x 6.2 cm, volume 115 cc. Retroverted position. Normal overall size and echotexture. Masses: None. Endometrium: 7.3 mm. At this time, the avascular inhomogeneous echogenic abnormality within the right side of the endometrial echo cavity along the fundus measures 2.6 x 2.0 x 2.6 cm. At the time of the initial pelvic ultrasound, this measured 2.3 x 6.7 x 3 cm and was much less echogenic. At the time of the MRI, this lesion measured 3.5 x 1.3 x 1.3 cm. Increasing number and caliber of 1-2 mm nodular areas of echogenicity within this lesion. This lesion involves the endometrial cavity and also appears to involve small portion of the submucosal myometrium. Cervix: Unremarkable. Right Ovary: 4.5 x 2.0 x 2.1 cm, volume 9.8 cc. Normal echotexture and blood flow. Left Ovary: 5.6 x 2.8 x 3.2 cm, volume 26 cc. Normal echotexture and blood flow. Free Fluid: None. Other: None. IMPRESSION: 1. No ovarian torsion. 2. Grossly stable caliber of the roughly 2.6 x 2.0 x 2.6 cm abnormality right side of the fundal endometrial cavity since the 04/25/2018 pelvic MR. This is consistent with retained placenta, suspect some degree of placenta accreta. Interval development of tiny calcifications within this finding. RADIA
== END 2018-05-16 18:11 | disposition home or self-care (01) ==
LOC: DI 18:10
PROVIDERS: ATTEND Nurse Practitioner Obstetrics & Gynecology
DX: O73.0 Retained placenta without hemorrhage (principal)
CPT/HCPCS: 76856

== ENCOUNTER 2018-05-21 14:31 | Outpatient (CLI) | payer OTHER, MEDICAID | END 2018-05-21 14:32 | disposition home or self-care (01) | LOC: LAB 14:31 | PROVIDERS: ATTEND Nurse Practitioner Obstetrics & Gynecology | DX: O73.1 Retained portions of placenta and membranes, without hemorrhage (principal) | CPT/HCPCS: 36415; 84702 ==

== ENCOUNTER 2018-12-03 16:36 | Emergency (ER) | payer MEDICAID, OTHER ==
--- NOTE | 2018-12-03 17:05 | ED Physician Documentation ---
PD HPI NVD - Stated complaint Stated Complaint: VOMITING - Chief complaint Chief Complaint: Abd Pain - History obtained from History obtained from: Patient - History of Present Illness Timing - onset: Yesterday (Heavy watery diarrhea since yesterday. No sick contacts. A lot of vomiting as well. C/O cramping.) Timing - details: Abrupt onset (But she has had some upper abdominal pain for 6 months. She had a history of C. difficile x1 when she was 17.) Review of Systems Constitutional: reports: Reviewed and negative Throat: reports: Reviewed and negative Cardiac: reports: Reviewed and negative : reports: Dysuria Skin: reports: Reviewed and negative PD PAST MEDICAL HISTORY - Past Medical History Past Medical History: Yes Cardiovascular: None Respiratory: None Endocrine/Autoimmune: None GI: Ulcers [place] COMMISSIONER: None : None HEENT: None Psych: None Musculoskeletal: None Derm: None - Past Surgical History Past Surgical History: Yes HEENT: Tonsil/Adenoidectomy - Present Medications Home Medications: Ambulatory Orders Medication Instructions Recorded Confirmed Pnv No.121/Iron/Folic Acid 1 tab PO DAILY 10/11/17 04/22/18 [ Multivitamin Tablet] Iron,Carbonyl [Iron Chews] 1 tab PO DAILY 04/18/18 04/22/18 Docusate Sodium 250Mg Capsule 250 mg PO DAILY 04/22/18 04/22/18 [Colace 250Mg Capsule] Metoclopramide [Reglan] 10 mg PO Q6H PRN #20 tablet 12/03/18 - Allergies Allergies/Adverse Reactions: Allergies Allergy/AdvReac Type Severity Reaction Status Date / Time ondansetron AdvReac Anxiety Verified 04/22/18 13:39 [From Zofran (as hydrochloride)] - Social History Does the pt smoke?: No Smoking Status: Never smoker Does the pt drink ETOH?: No Does the pt have substance abuse?: No Substance Use and Type: Marijuana - Immunizations Immunizations are current?: Yes - POLST Patient has POLST: No PD ED PE NORMAL - Vitals Vital signs reviewed: Yes - General General: Alert and oriented X 3, No acute distress - Abdomen Abdomen: Normal bowel sounds, Soft, Non distended, Other (Mild ttp generally) - Back Back: No CVA TTP, No spinal TTP - Derm Derm: Normal color, Warm and dry - Extremities Extremities: No edema, No calf tenderness / cord - Neuro Neuro: Alert and oriented X 3, painter set 2-12 intact, Normal speech - Psych Psych: Normal mood, Normal affect Results - Vitals Vitals: Vital Signs - 24 hr 12/03/18 12/03/18 16:39 18:39 Temperature 36.6 C 36.6 C Heart Rate 77 74 Respiratory 16 18 Rate Blood Pressure 131/89 H 136/74 H O2 Saturation 99 100 Oxygen O2 Source Room air - Labs Labs: Microbiology 12/03/18 18:00 Campylobacter Antigen Assay - Final Stool Laboratory Tests 12/03/18 17:23 Sodium 141 Potassium 3.4 L Chloride 108 Carbon Dioxide 21 Anion Gap 12.0 BUN 15 Creatinine 0.5 Estimated GFR (MDRD) 154 Glucose 108 H Calcium 9.3 Total Bilirubin 0.5 AST 23 ALT 17 Alkaline Phosphatase 88 Total Protein 8.4 H Albumin 4.3 Globulin 4.1 Albumin/Globulin Ratio 1.0 Lipase 36 PD MEDICAL DECISION MAKING - ED course ED course: 23-year-old woman presents with gastroenteritis. Stool was sent given history of C. difficile, but the clinical syndrome really is pretty inconsistent with this. She felt better after nausea medication and IV fluids and requested discharge after passing a p.o. challenge. Departure - Departure Disposition: 01 Home, Self Care Clinical Impression: Vomiting, Abdominal pain Condition: Good Record reviewed to determine appropriate education?: Yes Instructions: ED Nausea Vomiting Prescriptions: Metoclopramide [Reglan] 10 mg PO Q6H PRN #20 tablet PRN Reason: nausea or headache Comments: Return in 12-24 hours if not better, anytime for new or worsening symptoms. Discharge Date/Time: 12/03/18 18:47
[2018-12-03] MEDS ORDERED: SODIUM CHLORIDE 0.9% 1,000 ML IV ONE (17:08)
[2018-12-03] MEDS ORDERED: PROCHLORPERAZINE 10 MG/2 ML VIAL IVP STA (17:08)
[2018-12-03] MEDS ORDERED: KETOROLAC 30 MG/ML VIAL IVP STA (17:20)
[2018-12-03] MEDS ORDERED: LOPERAMIDE 2 MG CAPSULE PO STA (17:20)
[2018-12-03 17:40] LABS: ALBUMIN 4.3 g/dL (3.2-5.5); BILIRUBIN,TOTAL 0.5 mg/dL (0.2-1.0); CALCIUM 9.3 mg/dL (8.5-10.3); CREATININE 0.5 mg/dL (0.4-1.0); TOTAL PROTEIN 8.4 g/dL (6.7-8.2)
[2018-12-03 18:40] VITALS: BP 136/74
--- NOTE | 2018-12-03 21:44 | ED Physician Documentation ---
ED Addendum - Addendum Addendum: 12/03/18 21:43 Took call from lab with positive C. difficile. Called both phone numbers on the chart, no answer at either and voicemail was left on both for patient to call back. This is a recurrence. When she calls back she should be prescribed vancomycin 125 mg p.o. 4 times daily for 10 days.
== END 2018-12-03 18:47 | disposition home or self-care (01) ==
LOC: ED 16:36
DX: R11.10 Vomiting, unspecified (principal); R10.10 Upper abdominal pain, unspecified; B96.89 Other specified bacterial agents as the cause of diseases classified elsewhere; A04.72 Enterocolitis due to Clostridium difficile, not specified as recurrent
CPT/HCPCS: 36415; 80053; 83690; 87045; 87046; 87493; 96361; 96374; 96375; 99283; A9270

== ENCOUNTER 2019-04-11 08:37 | Emergency (ER) | payer OTHER ==
[2019-04-11 09:03] VITALS: BP 107/71
--- NOTE | 2019-04-11 09:20 | ED Physician Documentation ---
History of Present Illness - Stated complaint Stated Complaint: RT EYE ITCHY,RED - Chief complaint Chief Complaint: Heent - History obtained from History obtained from: Patient - History of Present Illness Timing: Yesterday Pain level max: 0 Pain level now: 0 Improved by: nothing Worsened by: nothing - Additonal information Additional information: 23-year-old female states that she has had a right eye redness and clear discharge since yesterday. Itching today. No fevers. Has had some runny nose and congestion. No coughing. She is not , breast-feeding or trying to become . She does not wear contacts. 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 : None HEENT: None Psych: None Musculoskeletal: None Derm: None - Past Surgical History Past Surgical History: Yes HEENT: Tonsil/Adenoidectomy - Present Medications Home Medications: Ambulatory Orders Medication Instructions Recorded Confirmed Pnv No.121/Iron/Folic Acid 1 tab PO DAILY 10/11/17 04/22/18 [ Multivitamin Tablet] Iron,Carbonyl [Iron Chews] 1 tab PO DAILY 04/18/18 04/22/18 Docusate Sodium 250Mg Capsule 250 mg PO DAILY 04/22/18 04/22/18 [Colace 250Mg Capsule] Metoclopramide [Reglan] 10 mg PO Q6H PRN #20 tablet 12/03/18 Ketotifen Fumarate [Zaditor] 1 drops EACHEYE Q8H PRN #1 bottle 04/11/19 Polymyxin B/Trimeth Ophth Drop 1 drops RIGHTEYE Q3H 7 Days #1 04/11/19 [Polytrim Ophth Drops] bottle - Allergies Allergies/Adverse Reactions: Allergies Allergy/AdvReac Type Severity Reaction Status Date / Time ondansetron AdvReac Anxiety Verified 04/11/19 08:57 [From Zofran (as hydrochloride)] - Social History Does the pt smoke?: No Smoking Status: Never smoker Does the pt drink ETOH?: No Does the pt have substance abuse?: No - Immunizations Immunizations are current?: Yes - POLST Patient has POLST: No PD ED PE NORMAL - Vitals Vital signs reviewed: Yes - General General: Alert and oriented X 3, No acute distress - HEENT HEENT: Moist mucous membranes, Other (Right eye - Conjunctival injection with clear tearing. Normal lids. No foreign body. Normal left eye) - Neck Neck: Supple, no meningeal sign - Derm Derm: Warm and dry - Neuro Neuro: Alert and oriented X 3 Results - Vitals Vitals: Vital Signs - 24 hr 04/11/19 08:55 Temperature 36.1 C L Heart Rate 99 Respiratory 16 Rate Blood Pressure 107/71 O2 Saturation 100 Oxygen O2 Source Room air PD MEDICAL DECISION MAKING - ED course Complexity details: considered differential, d/w patient ED course: 23-year-old female with right eye bacterial conjunctivitis. Will place on Polytrim ophthalmic. Also placed on Zaditor eyedrops in case this is allergic. Patient counseled regarding signs and symptoms for which I believe and urgent re-evaluation would be necessary. Patient with good understanding of and agreement to plan and is comfortable going home at this time This document was made in part using voice recognition software. While efforts are made to proofread this document, sound alike and grammatical errors may occur. Departure - Departure Disposition: 01 Home, Self Care Clinical Impression: Bacterial conjunctivitis of right eye Condition: Good Instructions: ED Conjunctivitis Bacterial Follow-Up: your,doctor in 1 week if not better [Other] Prescriptions: Ketotifen Fumarate [Zaditor] 1 drops EACHEYE Q8H PRN #1 bottle PRN Reason: itching Polymyxin B/Trimeth Ophth Drop [Polytrim Ophth Drops] 1 drops RIGHTEYE Q3H 7 Days #1 bottle Comments: Use the medications as prescribed. Return if you worsen. Follow-up with your doctor in 1 week if not better.
== END 2019-04-11 09:37 | disposition home or self-care (01) ==
LOC: ED 08:37
DX: H10.9 Unspecified conjunctivitis (principal)
CPT/HCPCS: 99282; 99284

== ENCOUNTER 2020-01-17 11:17 | Emergency (ER) | payer OTHER ==
[2020-01-17 11:51] LABS: BASOPHILS % (AUTO) 0.3 %; EOSINOPHILS # (AUTO) 0.1 10^3/uL (0.0-0.7); EOSINOPHILS % (AUTO) 1.5 %; HGB - HEMOGLOBIN 13.3 g/dL (12.0-16.0); LYMPHOCYTES # (AUTO) 1.8 10^3/uL (1.5-3.5); LYMPHOCYTES % (AUTO) 28.7 %; MEAN CORPUSCULAR HEMOGLOBIN 29.6 pg (27.0-31.0); MEAN CORPUSCULAR HGB CONC 34.7 g/dL (32.0-36.0); MEAN CORPUSCULAR VOLUME 85.1 fL (81.0-99.0); MEAN PLATELET VOLUME 8.7 fL (7.9-10.8); MONOCYTES # (AUTO) 0.4 10^3/uL (0.0-1.0); MONOCYTES % (AUTO) 7.2 %; NEUTROPHILS # (AUTO) 3.8 10^3/uL (1.5-6.6); PLT - PLATELET COUNT 213 10^3/uL (130-450); RED CELL DISTRIBUTION WIDTH 12.5 % (12.0-15.0); WHITE BLOOD COUNT 6.1 x10^3/uL (4.8-10.8)
[2020-01-17 11:53] LABS: BILIRUBIN,URINE NEGATIVE (NEGATIVE); GLUCOSE, URINE (UA) NEGATIVE (NEGATIVE); KETONES,URINE (UA) NEGATIVE (NEGATIVE); LEUKOCYTE ESTERASE, URINE NEGATIVE (NEGATIVE); NITRITE,URINE NEGATIVE (NEGATIVE); OCCULT BLOOD,URINE NEGATIVE (NEGATIVE); PH,URINE 6.5 PH (5.0-7.5); PROTEIN,URINE NEGATIVE (NEGATIVE); UROBILINOGEN,URINE 0.2 (NORMAL) E.U./dL (NORMAL)
[2020-01-17 11:58] LABS: CLARITY,URINE CLEAR (CLEAR)
[2020-01-17 12:06] LABS: ALBUMIN 4.5 g/dL (3.2-5.5); ALBUMIN/GLOBULIN RATIO 1.3 (1.0-2.2); BILIRUBIN,TOTAL 0.6 mg/dL (0.2-1.0); CALCIUM 9.3 mg/dL (8.5-10.3); CREATININE 0.6 mg/dL (0.4-1.0); TOTAL PROTEIN 7.9 g/dL (6.7-8.2)
--- NOTE | 2020-01-17 12:16 | ED Physician Documentation ---
PD HPI ABD PAIN - Stated complaint Stated Complaint: ABD PX - Chief complaint Chief Complaint: Abd Pain - History obtained from History obtained from: Patient - History of Present Illness Timing - onset: How many days ago (4) Timing - duration: Days (4) Timing - details: Gradual onset, Still present, Waxing and waning Quality: Cramping, Aching, Pain Location: RLQ Radiation: No: Chest, Lower back, Right flank Improved by: Position (on side). No: Eating Worsened by: Moving, Palpation. No: Eating, Breathing Associated symptoms: Nausea (for the past month, though), Loss of appetite. No: Fever, Vomiting, Diarrhea, Constipation, Dysuria Similar symptoms before: Has not had sx before Recently seen: Clinic (had positive test; no OB appt as yet) Review of Systems Constitutional: denies: Fever, Chills Nose: denies: Rhinorrhea / runny nose, Congestion Throat: denies: Sore throat Respiratory: denies: Cough GI: reports: Abdominal Pain (4 days), Nausea (for 4 weeks with early ). denies: Constipation, Diarrhea : reports: Missed period, Now EGA (5 weeks). 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 : None HEENT: None Psych: None Musculoskeletal: None Derm: None - Past Surgical History Past Surgical History: Yes HEENT: Tonsil/Adenoidectomy - Present Medications Home Medications: Ambulatory Orders Medication Instructions Recorded Confirmed Pnv No.121/Iron/Folic Acid 1 tab PO DAILY 10/11/18 01/17/20 [ Multivitamin Tablet] Naproxen 375 mg PO BID #15 tablet 01/17/20 Promethazine [Phenergan] 25 mg PO Q6H PRN #25 tab 01/17/20 dexAMETHasone [Decadron] 4 mg PO DAILY #5 tablet 01/17/20 - Allergies Allergies/Adverse Reactions: Allergies Allergy/AdvReac Type Severity Reaction Status Date / Time ondansetron AdvReac Anxiety Verified 01/17/20 11:22 [From Zofran (as hydrochloride)] - Social History Does the pt smoke?: No Smoking Status: Never smoker Does the pt drink ETOH?: No Does the pt have substance abuse?: No - Immunizations Immunizations are current?: Yes - POLST Patient has POLST: No PD ED PE NORMAL - Vitals Vital signs reviewed: Yes - General General: Alert and oriented X 3, No acute distress, Well developed/nourished - HEENT HEENT: Pharynx benign - Neck Neck: Supple, no meningeal sign, No adenopathy - Cardiac Cardiac: RRR, No murmur - Respiratory Respiratory: Clear bilaterally - Abdomen Abdomen: Normal bowel sounds, Soft, Non distended, No organomegaly, Other (tender without guarding RLQ to suprapubic area without percussion nor rebound tenderness, no local guarding. ) - Female Female : Deferred - Rectal Rectal: Deferred - Back Back: No CVA TTP - Derm Derm: Normal color, Warm and dry - Extremities Extremities: No tenderness to palpate, Normal ROM s pain, No edema, No calf tenderness / cord - Neuro Neuro: Alert and oriented X 3, No motor deficit, Normal speech Results - Vitals Vitals: Oxygen O2 Source Room air - Labs Labs: Laboratory Tests 01/17/20 01/17/20 01/17/20 11:43 11:43 11:43 WBC 6.1 RBC 4.50 Hgb 13.3 Hct 38.3 MCV 85.1 MCH 29.6 MCHC 34.7 RDW 12.5 Plt Count 213 MPV 8.7 Neut # (Auto) 3.8 Lymph # (Auto) 1.8 [place] # (Auto) 0.4 Eos # (Auto) 0.1 Baso # (Auto) 0.0 Absolute Nucleated RBC 0.00 Nucleated RBC % 0.0 Sodium 136 Potassium 3.1 L Chloride 103 Carbon Dioxide 24 Anion Gap 9.0 BUN 7 Creatinine 0.6 Estimated GFR (MDRD) 124 Glucose 110 H Calcium 9.3 Total Bilirubin 0.6 AST 22 ALT 16 Alkaline Phosphatase 47 Total Protein 7.9 Albumin 4.5 Globulin 3.4 Albumin/Globulin Ratio 1.3 Lipase 38 HCG, Quant Urine Color Urine Clarity Urine pH Ur Specific [place] Urine Protein Urine Glucose (UA) Urine Ketones Urine Occult Blood Urine Nitrite Urine Bilirubin Urine Urobilinogen Ur Leukocyte Esterase Ur Microscopic Review Urine Culture Comments Blood Type O POSITIVE 01/17/20 01/17/20 11:43 11:43 WBC RBC Hgb Hct MCV MCH MCHC RDW Plt Count MPV Neut # (Auto) Lymph # (Auto) [place] # (Auto) Eos # (Auto) Baso # (Auto) Absolute Nucleated RBC Nucleated RBC % Sodium Potassium Chloride Carbon Dioxide Anion Gap BUN Creatinine Estimated GFR (MDRD) Glucose Calcium Total Bilirubin AST ALT Alkaline Phosphatase Total Protein Albumin Globulin Albumin/Globulin Ratio Lipase HCG, Quant 5769.00 Urine Color YELLOW Urine Clarity CLEAR Urine pH 6.5 Ur Specific [place] 1.025 Urine Protein NEGATIVE Urine Glucose (UA) NEGATIVE Urine Ketones NEGATIVE Urine Occult Blood NEGATIVE Urine Nitrite NEGATIVE Urine Bilirubin NEGATIVE Urine Urobilinogen 0.2 (NORMAL) Ur Leukocyte Esterase NEGATIVE Ur Microscopic Review NOT INDICATED Urine Culture Comments NOT INDICATED Blood Type - Rads (name of study) OB U/S Radiology: Prelim report reviewed (GS without pole with size c/w dates at 5w4d. ), See rad report PD MEDICAL DECISION MAKING - ED course Complexity details: reviewed results, considered differential (Apparent IUP. No acute free fluid, normal ovaries. Low clinical suspicion for appendicitis nor kidney stones. 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 To have pt call office Tues AM for appt. ) Departure - Departure Disposition: 01 Home, Self Care Clinical Impression: Lower abdominal pain Qualifiers: Weeks of gestation: less than 8 weeks Qualified Code(s): Z3A.01 - Less than 8 weeks gestation of Condition: Stable Record reviewed to determine appropriate education?: Yes Instructions: ED Pelvic Pain [facility] Follow-Up: KEESHA BELLO MD [Provider Admit Priv/Credential] - Prescriptions: dexAMETHasone [Decadron] 4 mg PO DAILY #5 tablet Naproxen 375 mg PO BID #15 tablet Promethazine [Phenergan] 25 mg PO Q6H PRN #25 tab PRN Reason: Nausea / Vomiting Comments: Stay well-hydrated. Continue your vitamin B6 and doxylamine for nausea. Add promethazine if needed. You can also add Decadron steroid for several days to help with the nausea 2. These are recommendations from [employer]. For the lower abdominal pain, no obvious abnormalities seen on your ultrasound. It was an early and so should be followed with a repeat hCG and ultrasounds to ensure normal progression. Follow-up with the [employer] office, call them Saturday for an appointment for later sometime this week Discharge Date/Time: 01/17/20 16:07
[2020-01-17] MEDS ORDERED: SODIUM CHLORIDE 0.9% 1,000 ML IV STA (12:17)
[2020-01-17] MEDS ORDERED: KETOROLAC 15 MG/ML VIAL IVP STA (12:17)
--- NOTE | 2020-01-17 13:55 | Ultrasound Report ---
Reason: RLQ pain and early preg 5 wks-lisa Procedure Date: 01/17/2020 Accession Number: [id number] / [id number] Procedure: US - OB First Trimester CPT Code: Final Report FULL RESULT: EXAM: FIRST TRIMESTER OBSTETRIC ULTRASOUND (Less than 11 weeks) EXAM DATE: 01/17/2020 12:34 PM. CLINICAL HISTORY: Right lower quadrant pain. LMP: 12/11/2019. COMPARISONS: None. TECHNIQUE: Transabdominal and transvaginal ultrasound examination with static image documentation. CLINICAL DATES: EGA 5 weeks 2 days with KIM 09/16/2020 based on LMP. ASSESSMENT: Gestational Sac: Single intrauterine. Normal shape. Mean gestational sac diameter: 6 mm = 5 weeks 2 days. Embryo: Not visualized. Yolk sac: Not visualized. Amniotic fluid: Not accurately assessed at this gestational age. Early placenta: Not visible at this gestational age. Other: No perigestational fluid collection demonstrated. MATERNAL STRUCTURES: Uterus: Anteverted. Unremarkable. Cervix: Closed. Right Ovary/Adnexa: The ovary measures 3.7 x 1.4 x 1.9 cm, volume 5.2 cc. Small physiologic follicles are seen. 1.4 cm hypoechoic nodule, probable collapsed corpus luteal cyst is also noted.. Left Ovary/Adnexa: The ovary measures 2.9 x 2.3 x 1.8 cm, volume 6.3 cc. Small physiologic follicles are seen. Small 1.7 cm partially collapsed corpus luteal cyst may also be present.. Free Fluid: None. Other: None. IMPRESSION: Single intrauterine gestation of uncertain viability with tiny gestational sac present (5 weeks 2 days by MSD) but no pole or yolk sac identified at this time. Differential consideration includes early or missed . Recommend serial beta hCG and repeat ultrasound in 7-11 days. [facility]
[2020-01-17] MEDS ORDERED: DEXAMETHASONE 10 MG/ML VIAL IVP STA (15:03)
[2020-01-17] MEDS ORDERED: PROMETHAZINE INJ 6.25 MG in SODIUM CHLORIDE 0.9% 50 ML IV STA (15:03)
[2020-01-17 15:33] VITALS: BP 102/79
== END 2020-01-17 16:07 | disposition home or self-care (01) ==
LOC: ED 11:17
DX: O26.891 Other specified pregnancy related conditions, first trimester (principal); R10.31 Right lower quadrant pain; O21.0 Mild hyperemesis gravidarum; Z3A.01 Less than 8 weeks gestation of pregnancy
CPT/HCPCS: 36415; 76801; 76817; 80053; 81001; 81003; 83690; 84702; 85025; 86900; 86901; 87086; 96361; 96374; 99284